=== PATIENT | male | born 1945 | race Caucasian/White ===

== ENCOUNTER 2019-01-17 00:10 | Inpatient (IN) | payer OTHER, MEDICARE ==
[2019-01-17] MEDS ORDERED: DILTIAZEM HCL INJ 25 MG/5 ML VIAL ONE (01:24)
[2019-01-17] MEDS ORDERED: DILTIAZEM HCL/D5W 125 MG/125 ML RTUINJ IV ONE (01:25)
[2019-01-17] MEDS ORDERED: ASPIRIN 81 MG TABLET, CHEWABLE PO ONE (01:28)
[2019-01-17] MEDS ORDERED: DILTIAZEM HCL/D5W 125 MG/125 ML RTUINJ IV PRN (01:29)
[2019-01-17] MEDS ORDERED: DILTIAZEM HCL INJ 25 MG/5 ML VIAL IV ONE (01:29)
[2019-01-17] MEDS ORDERED: NORMAL SALINE 500 ML IV ONE ×2 (01:38→02:51)
--- NOTE | 2019-01-17 01:38 | ER Document Report ---
ED Cardiac - General Chief Complaint: Chest Pain Stated Complaint: CHEST PAIN Time Seen by Provider: 01/17/19 01:16 Notes: Patient is a 73-year-old male that comes emergency department for chief complaint of chest pain. He states he felt earlier this afternoon briefly but thought it was just soreness in his chest from push-ups he tried this morning, however this evening prior to arrival it became much more noticeable so he came into be evaluated. Symptoms are still intermittent. He denies shortness of breath, dizziness, nausea, vomiting, fever/chills. Past medical history of hypertension, hyperlipidemia, [place] in 1999. Takes baby aspirin. TRAVEL OUTSIDE OF THE [place] IN LAST 30 DAYS: No - Related Data Allergies/Adverse Reactions: Penicillins Allergy (Mild, Verified 01/17/19 00:13) Past Medical History - General Information source: Patient - Social History Smoking Status: Never Smoker Frequency of alcohol use: None Drug Abuse: None Lives with: Family Family History: Reviewed & Not Pertinent - Past Medical History Cardiac Medical History: Reports: Hx Heart Attack, Hx Hypercholesterolemia, Hx Hypertension Past Surgical History: Reports: Hx Cardiac Catheterization, Hx Cholecystectomy - Immunizations Immunizations up to date: Yes Hx Diphtheria, Pertussis, Tetanus Vaccination: Yes Review of Systems - Review of Systems Constitutional: No symptoms reported EENT: No symptoms reported Cardiovascular: See HPI Respiratory: No symptoms reported Gastrointestinal: No symptoms reported Genitourinary: No symptoms reported Male Genitourinary: No symptoms reported Musculoskeletal: No symptoms reported Skin: No symptoms reported Hematologic/Lymphatic: No symptoms reported Neurological/Psychological: No symptoms reported Physical Exam - Vital signs Vitals: Temp Pulse Resp BP Pulse Ox 97.5 F 70 20 112/76 96 01/17/19 00:34 01/17/19 00:34 01/17/19 00:34 01/17/19 00:34 01/17/19 00:34 - Notes Notes: GENERAL: Alert, interacts well. No acute distress. HEAD: Normocephalic, atraumatic. EYES: Pupils equal, round, and reactive to light. Extraocular movements intact. ENT: Oral mucosa moist, tongue midline. Oropharynx unremarkable. Airway patent. LUNGS: Clear to auscultation bilaterally, no wheezes, rales, or rhonchi. No respiratory distress. HEART: Irregularly irregular with tachycardia. No murmur. ABDOMEN: Soft, non-tender. Non-distended. EXTREMITIES: Moves all 4 extremities spontaneously. No edema, normal radial and dorsalis pedis pulses bilaterally. No cyanosis. BACK: no cervical, thoracic, lumbar midline tenderness. No saddle anesthesia, normal distal neurovascular exam. Moves all extremities in full range of motion. NEUROLOGICAL: Alert and oriented x3. Normal speech. Cranial nerves II through XII grossly intact. PSYCH: Normal affect, normal mood. SKIN: Warm, dry, normal turgor. No rashes or lesions noted. Course - Re-evaluation Re-evalutation: 01/17/19 01:32 On initial evaluation patient noted to be in atrial fibrillation with rapid ventricular response. He does feel vague discomfort with it. His heart rate was trending in the 150s, initial EKG did not show A. fib, EKG was repeated and patient confirmed to be in atrial fibrillation. Patient and family confirm that he does not have a history of atrial fibrillation, his prescriptions suggest that he has never had this before as well. 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 Patient blood pressure initially 117 systolic at bedside. He was given 15 mg of Cardizem, he did have good response and his average heart rate dropped down to the 105-125 range, however he remains in atrial for ablation. He is on a Cardizem drip. Given aspirin. Work-up pending. CBC unremarkable, magnesium and TSH are unremarkable, chemistry unremarkable ex cept for mild elevation of creatinine at 1.59. No previous records to compare to. Troponin is negative. Chest x-ray is clear. On reevaluation patient without significant change. We have not increased Cardizem because his blood pressure is slightly borderline. He denies any current symptoms. Patient was given Lovenox because of his atrial fibrillation with rapid ventricular response. Called and spoke with daughter Isiah, hospitalist, patient admitted to telemetry. Family states understanding and agreement with plan. - Vital Signs Vital signs: Temp Pulse Resp BP Pulse Ox 97.5 F 70 20 106/65 95 01/17/19 00:34 01/17/19 00:34 01/17/19 05:12 01/17/19 05:12 01/17/19 05:12 - Laboratory Result Diagrams: 01/17/19 01:30 01/17/19 01:30 Laboratory results interpreted by me: 01/17/19 01/17/19 01:30 01:30 RDW 14.1 H Monocytes % 13.1 H BUN 26 H Creatinine 1.59 H Est GFR ( Amer) 52 L Est GFR (Non-Af Amer) 43 L Calcium 10.3 H Total Bilirubin 2.2 H Discharge - Discharge Clinical Impression: Atrial fibrillation with rapid ventricular response, Chest discomfort Condition: Stable Disposition: ADMITTED INPATIENT Admitting Provider: Isiah (Hospitalist) Unit Admitted: Telemetry
[2019-01-17 01:44] LABS: ABSOLUTE BASOPHILS # (AUTO) 0.1 10^3/uL (0.0-0.2); ABSOLUTE EOSINOPHILS # (AUTO) 0.1 10^3/uL (0.0-0.6); ABSOLUTE LYMPHOCYTES (AUTO) 1.2 10^3/uL (0.5-4.7); ABSOLUTE MONOCYTES (AUTO) 1.2 10^3/uL (0.1-1.4); ABSOLUTE NEUT (AUTO) 6.3 10^3/uL (1.7-8.2); BASOPHILS % (AUTO) 0.7 % (0-2); EOSINOPHILS % (AUTO) 1.4 % (0-6); HEMATOCRIT 44.3 % (37.9-51.0); HEMOGLOBIN 14.9 g/dL (13.5-17.0); LYMPHOCYTES % (AUTO) 13.7 % (13-45); MEAN CORPUSCULAR HEMOGLOBIN 30.3 pg (27.0-33.4); MEAN CORPUSCULAR HGB CONC 33.6 g/dL (32.0-36.0); MEAN CORPUSCULAR VOLUME 90 fl (80-97); MONOCYTES % (AUTO) 13.1 % (3-13); PLATELET COUNT 153 10^3/uL (150-450); RED BLOOD COUNT 4.91 10^6/uL (4.35-5.55); RED CELL DISTRIBUTION WIDTH 14.1 % (11.5-14.0); SEGMENTED NEUTROPHILS % (AUTO) 71.1 % (42-78); TOTAL CELLS COUNTED % (AUTO) 100 %; WHITE BLOOD COUNT 8.9 10^3/uL (4.0-10.5)
[2019-01-17 01:59] LABS: ALBUMIN 4.2 g/dL (3.5-5.0); ALKALINE PHOSPHATASE 78 U/L (38-126); ANION GAP 12 (5-19); ASPARTATE AMINO TRANSFERASE 18 U/L (17-59); BILIRUBIN,DIRECT 0.2 mg/dL (0.0-0.4); BILIRUBIN,TOTAL 2.2 mg/dL (0.2-1.3); BLOOD UREA NITROGEN 26 mg/dL (7-20); CALCIUM 10.3 mg/dL (8.4-10.2); CARBON DIOXIDE 22 mmol/L (22-30); CHLORIDE 107 mmol/L (98-107); GLUCOSE 102 mg/dL (75-110); POTASSIUM 4.3 mmol/L (3.6-5.0); TOTAL PROTEIN 7.1 g/dL (6.3-8.2)
--- NOTE | 2019-01-17 02:04 | RADIOLOGY REPORT (SQ) ---
CLINICAL HISTORY: chest pain COMPARISON: None. TECHNIQUE: XR CHEST 1 VIEW 01/17/2019 1:29 AM CDT FINDINGS: Cardiac silhouette is normal in size. Lungs are clear without consolidation, atelectasis, mass or edema. There is no pleural effusion. There is no pneumothorax. There are no acute osseous findings. IMPRESSION: Clear lungs.
[2019-01-17] MEDS ORDERED: ENOXAPARIN SODIUM INJ 80 MG/0.8 ML DISP.SYRIN SUBCUT ONE (02:35)
[2019-01-17] MEDS ORDERED: LEVALBUTEROL HCL NEB 0.63 MG/3 ML AMPUL NEB PRN (04:16)
[2019-01-17] MEDS ORDERED: MAGNESIUM HYDROXIDE SUSP 30 ML UDCUP PO PRN (04:16)
[2019-01-17] MEDS ORDERED: ONDANSETRON HCL INJ/PF 4 MG/2 ML SDV IV PRN (04:16)
[2019-01-17] MEDS ORDERED: MAG HYDROX/AL HYDROX/SIMETH SUSP 30 ML UDCUP PO PRN (04:16)
[2019-01-17] MEDS ORDERED: NICOTINE 21 MG/24 HR PATCH.TD24 TD PRN (04:22)
[2019-01-17] MEDS ORDERED: ACETAMINOPHEN 325 MG TABLET PO PRN (04:22)
[2019-01-17] MEDS ORDERED: MORPHINE SULFATE 10 MG/ML INJ IV PRN ×4 (04:22→05:23)
[2019-01-17] MEDS ORDERED: DIGOXIN INJ 0.5 MG/2 ML AMPULE IV ONE (04:23)
--- NOTE | 2019-01-17 06:57 | PDOC H&P ---
History of Present Illness Admission Date/PCP: 01/17/19 03:12 GABRIELLA AYALA Patient complains of: Chest pain History of Present Illness: ELZA ELLIOTT is a 73 year old male who presented to the emergency room with acute chest pain. He admits having mild soreness in his chest earlier in the day yesterday, but last evening he developed severe, intermittent throbbing pressure in his central chest, without radiation causing him to present to the emergency room. The episodes of discomfort lasted for a few minutes to several minutes before spontaneously regressing and then later reoccurring. He admits lightheadedness associated with his chest pain and anxiety as well as mild d yspnea worsened by exertion accompanying his chest pain. He denies prior similar episodes and has not identified any aggravating or ameliorating factors for his chest pain. In the emergency room he was found to have atrial fibrillation with a rapid ventricular response (new onset) and the patient's chest discomfort correlated to atrial fibrillation rates in excess of 150 bpm. His initial cardiac enzymes were negative and his EKG did not show any evidence of cardiac ischemia or injury. He was started on an intravenous diltiazem infusion which established fair rate control and he was subsequently admitted to the hospital for further evaluation and treatment. Past Medical History Cardiac Medical History: Reports: Coronary Artery Disease, Myocardial Infarction - 2001, Hyperlipidema, Hypertension Pulmonary Medical History: Denies: Asthma, Chronic Obstructive Pulmonary Disease (COPD) EENT Medical History: Reports: Nose - Chronic allergic rhinitis Denies: Cataracts, Ears - Hearing aids Neurological Medical History: Denies: Hemorrhagic CVA, Ischemic CVA, Multiple Sclerosis, Seizures Endocrine Medical History: Denies: Diabetes Mellitus Type 1, Diabetes Mellitus Type 2, Hyperthyroidism, Hypothyroidism, Obesity Renal/ Medical History: Reports: Other - Benign prostatic hypertrophy Denies: Chronic Kidney Disease, Nephrolithiasis Malignancy Medical History: Reports: None GI Medical History: Denies: Cirrhosis, Crohn's Disease, Hepatitis, Ulcerative Colitis Musculoskeltal Medical History: Denies: Arthritis, Gout Skin Medical History: Denies: Eczema, Psoriasis Psychiatric Medical History: Reports: None Denies: Alcohol Dependency, Substance Abuse, Tobacco Dependency Traumatic Medical History: Reports: None Hematology: Denies: Anemia, Bleeding Tendencies Infectious Medical History: Reports: None Past Surgical History Past Surgical History: Reports: Cholecystectomy, Herniorrhaphy, Tonsillectomy Social History Information Source: Patient Lives with: Spouse/Significant other Smoking Status: Never Smoker Frequency of Alcohol Use: None Hx Recreational Drug Use: No Drugs: None Hx Prescription Drug Abuse: No - Advance Directive Resuscitation Status: Full Code Surrogate healthcare decision maker:: Ivana Elliott Family History Family History: CAD, DM, Hypertension. denies: Malignancy Parental Family History Reviewed: Yes Children Family History Reviewed: No Sibling(s) Family History Reviewed.: Yes Medication/Allergy Allergies/Adverse Reactions: Penicillins Allergy (Mild, Verified 01/17/19 00:13) Review of Systems Constitutional: ABSENT: chills, fever(s) Eyes: ABSENT: visual disturbances, other - Eye pain Ears: ABSENT: hearing changes, other - Ear pain Nose, Mouth, and Throat: ABSENT: mouth pain, sore throat Cardiovascular: PRESENT: as per HPI, chest pain, dyspnea on exertion, palpitations. ABSENT: edema, orthropnea Respiratory: PRESENT: as per HPI, dyspnea. ABSENT: cough Gastrointestinal: ABSENT: abdominal pain, constipation, diarrhea, nausea, vomiting Genitourinary: ABSENT: dysuria, hematuria Integumentary: ABSENT: diaphoresis, pruritus, rash Neurological: ABSENT: confusion, convulsions, focal weakness, memory loss, syncope Psychiatric: PRESENT: as per HPI, anxiety. ABSENT: depression Endocrine: ABSENT: cold intolerance, heat intolerance Hematologic/Lymphatic: ABSENT: easy bleeding, easy bruising Allergic/Immunologic: PRESENT: seasonal rhinorrhea Physical Exam Vital Signs: Temp Pulse Resp BP Pulse Ox 97.5 F 70 16 102/68 97 01/17/19 00:34 01/17/19 00:34 01/17/19 03:01 01/17/19 03:01 01/17/19 03:01 Intake & Output 01/15/19 01/16/19 01/17/19 23:59 23:59 23:59 Intake Total 1000 Balance 1000 Weight 81 kg General appearance: PRESENT: no acute distress, cooperative Head exam: PRESENT: atraumatic, normocephalic Eye exam: PRESENT: conjunctiva pink. ABSENT: conjunctival injection, scleral icterus Ear exam: PRESENT: normal external ear exam. ABSENT: bleeding, drainage Mouth exam: PRESENT: dry mucosa, neck supple Neck exam: ABSENT: JVD, thyromegaly, tracheal deviation Respiratory exam: PRESENT: clear to auscultation ayana, symmetrical, unlabored Cardiovascular exam: PRESENT: irregular rhythm - Irregularly irregular rate and rhythm, tachycardia. ABSENT: clicks, gallop, rubs Pulses: PRESENT: normal radial pulses, normal dorsalis pedis pul Vascular exam: PRESENT: normal capillary refill. ABSENT: pallor GI/Abdominal exam: PRESENT: normal bowel sounds, soft. ABSENT: tenderness Rectal exam: PRESENT: deferred Extremities exam: ABSENT: joint swelling, pedal edema Musculoskeletal exam: PRESENT: full ROM, normal inspection Neurological exam: PRESENT: alert, oriented to person, oriented to place, oriented to time, oriented to situation, CN II-XII grossly intact. ABSENT: motor sensory deficit Psychiatric exam: PRESENT: appropriate affect, normal mood Skin exam: PRESENT: dry, intact, warm. ABSENT: jaundice, rash, urticaria Results Laboratory Results: 01/17/19 01:30 01/17/19 01:30 01/17/19 01/17/19 01/17/19 01:30 01:30 01:30 WBC 8.9 RBC 4.91 Hgb 14.9 Hct 44.3 MCV 90 MCH 30.3 MCHC 33.6 RDW 14.1 H Plt Count 153 Seg Neutrophils % 71.1 Lymphocytes % 13.7 Monocytes % 13.1 H Eosinophils % 1.4 Basophils % 0.7 Absolute Neutrophils 6.3 Absolute Lymphocytes 1.2 Absolute Monocytes 1.2 Absolute Eosinophils 0.1 Absolute Basophils 0.1 Sodium 140.8 Potassium 4.3 Chloride 107 Carbon Dioxide 22 Anion Gap 12 BUN 26 H Creatinine 1.59 H Est GFR ( Amer) 52 L Est GFR (Non-Af Amer) 43 L Glucose 102 Calcium 10.3 H Magnesium 2.3 Total Bilirubin 2.2 H AST 18 Alkaline Phosphatase 78 Total Protein 7.1 Albumin 4.2 TSH 01/17/19 01:30 WBC RBC Hgb Hct MCV MCH MCHC RDW Plt Count Seg Neutrophils % Lymphocytes % Monocytes % Eosinophils % Basophils % Absolute Neutrophils Absolute Lymphocytes Absolute Monocytes Absolute Eosinophils Absolute Basophils Sodium Potassium Chloride Carbon Dioxide Anion Gap BUN Creatinine Est GFR ( Amer) Est GFR (Non-Af Amer) Glucose Calcium Magnesium Total Bilirubin AST Alkaline Phosphatase Total Protein Albumin TSH 2.92 01/17/19 01:30 Troponin I < 0.012 Impressions: Chest X-Ray 01/17/19 01:29 IMPRESSION: Clear lungs. Assessment and Plan - Diagnosis (1) Atrial fibrillation with rapid ventricular response Is this a current diagnosis for this admission?: Yes Plan: Patient was treated initially with diltiazem infusion. Due to his soft blood pressure he will also be treated with Lanoxin 0.5 mg IV initially followed by 0.25 mg daily with daily digoxin levels to be obtained. A daily CBC, metabolic profile and magnesium level will also be obtained. (2) Chest discomfort Is this a current diagnosis for this admission?: Yes Plan: Patient will be monitored with telemetry throughout his hospital course. Serial cardiac enzymes and EKGs will be obtained. Further evaluation will be based upon his hospital course and the results of his testing. Consideration of the patient's chest discomfort may have been his interpretation of palpitations is given. Patient will be treated with morphine sulfate 2 to 4 mg IV every 2 hours on a as needed basis for his chest pain using a sliding scale. (3) CAD (coronary artery disease), [place] coronary artery Qualifiers: [place] vs. transplanted heart: [place] heart Associated angina: angina presence unspecified Qualified Code(s): I25.10 - Atherosclerotic heart disease of [place] coronary artery without angina pectoris Is this a current diagnosis for this admission?: Yes Plan: Patient will be monitored with telemetry throughout his hospital course. Serial cardiac enzymes and EKGs will be obtained. Further evaluation will be based upon his hospital course and the results of his testing. (4) Essential hypertension Is this a current diagnosis for this admission?: Yes Plan: Patient be continued on his usual antihypertensive regiment once his medical reconciliation has been completed. Adjustments will be made as required due to treatment of his atrial fibrillation. (5) HLD (hyperlipidemia) Qualifiers: Hyperlipidemia type: unspecified Qualified Code(s): E78.5 - Hyperlipidemia, unspecified Is this a current diagnosis for this admission?: Yes Plan: A lipid profile will be obtained and the patient will be treated with a cardiac diet. He will be continued on any lipid therapies prescribed to him once his medical reconciliation has been completed. Appropriate therapy will be prescribed as needed. - Time Time Spent with patient: 25-34 minutes Smoking Cessation Education: 3 to 10 minutes Medications reviewed and adjusted accordingly: Yes Anticipated discharge: Home - Inpatient Certification Based on my medical assessment, after consideration of the patient's comorbidities, presenting symptoms, or acuity I expect that the services needed warrant INPATIENT care.: Yes I certify that my determination is in accordance with my understanding of Medicare's requirements for reasonable and necessary INPATIENT services [42 CFR 412.3e].: Yes Medical Necessity: Significant Comorbidiites Make Outpatient Treatment Too Risky, Need Close Monitoring Due to Risk of Patient Decompensation, Need For Continuous Telemetry Monitoring, Risk of Complication if Not Cared For in Hospital
--- NOTE | 2019-01-17 07:37 | EKG REPORT ---
SEVERITY:- ABNORMAL ECG - ATRIAL FIBRILLATION WITH RAPID V-RATE VENTRICULAR PREMATURE COMPLEX NONSPECIFIC T ABNORMALITIES, LATERAL LEADS : Confirmed by: Romero Zaragoza MD 17-Jan-2019 07:36:48
--- NOTE | 2019-01-17 07:38 | EKG REPORT ---
SEVERITY:- NORMAL ECG - SINUS RHYTHM NONSPECIFIC LATERAL ST-T CHANGES : Confirmed by: Romero Zaragoza MD 17-Jan-2019 07:37:27
--- NOTE | 2019-01-17 07:41 | ADVANCED CARE ---
- Diagnosis (1) Atrial fibrillation with rapid ventricular response Diagnosis Current: Yes (2) Chest discomfort Diagnosis Current: Yes (3) CAD (coronary artery disease), [place] coronary artery Diagnosis Current: Yes (4) Essential hypertension Diagnosis Current: Yes (5) HLD (hyperlipidemia) Diagnosis Current: Yes Attendance: The patient, Ivana Elliott (his ) and myself. Resuscitation Status: Full Code Discussion: After brief discussion with patient and his have determined that he should be a full code resuscitation status throughout this hospitalization. Additionally the patient has named his Ivana Elliott as his designated surrogate medical decision-maker. They have not considered a living will or advanced directive at this point. Care Planning Goals: 1. Patient will be full CODE STATUS for this admission. 2. Ivana Elliott is the patient's designated surrogate medical decision-maker. Document(s) Completed: Following entries be made to the patient's permanent medical record, current medical record and current orders via EMR entry: 1. Patient will be full CODE STATUS for this admission. 2. Ivana Elliott is the patient's designated surrogate medical decision-maker. Time Spent: 16 minutes
[2019-01-17 08:31] LABS: TROPONIN I < 0.012 ng/mL
[2019-01-17 08:34] LABS: FREE T3 3.81 pg/mL (2.77-5.27); FREE T4 (FREE THYROXINE) 1.1 ng/dL (0.78-2.19)
[2019-01-17 08:47] LABS: THYROID STIMULATING HORMONE 2.19 uIU/mL (0.47-4.68)
[2019-01-17] MEDS: DOCUSATE SODIUM 100 MG CAPSULE PO SCH ×2 (09:56→17:42)
[2019-01-17] MEDS: FAMOTIDINE 20 MG TABLET PO SCH ×2 (10:00→22:02)
[2019-01-17] MEDS: APIXABAN 5 MG TABLET PO SCH ×2 (10:01→17:42)
[2019-01-17 14:31] LABS: CREATINE KINASE MB 0.96 ng/mL (<4.55)
[2019-01-17 14:32] LABS: TROPONIN I < 0.012 ng/mL
[2019-01-17 20:27] LABS: TROPONIN I < 0.012 ng/mL
[2019-01-18 06:01] LABS: HEMATOCRIT 41.4 % (37.9-51.0); HEMOGLOBIN 13.9 g/dL (13.5-17.0); MEAN CORPUSCULAR HEMOGLOBIN 30.5 pg (27.0-33.4); MEAN CORPUSCULAR HGB CONC 33.7 g/dL (32.0-36.0); MEAN CORPUSCULAR VOLUME 91 fl (80-97); PLATELET COUNT 128 10^3/uL (150-450); RED BLOOD COUNT 4.57 10^6/uL (4.35-5.55); RED CELL DISTRIBUTION WIDTH 14.1 % (11.5-14.0); WHITE BLOOD COUNT 8.2 10^3/uL (4.0-10.5)
[2019-01-18 06:16] LABS: ANION GAP 6 (5-19); BLOOD UREA NITROGEN 22 mg/dL (7-20); CALCIUM 9.1 mg/dL (8.4-10.2); CARBON DIOXIDE 25 mmol/L (22-30); CHLORIDE 107 mmol/L (98-107); CHOLESTEROL 119.82 mg/dL (0-200); DIGOXIN 0.73 ng/mL (0.8-2.0); GLUCOSE 88 mg/dL (75-110); POTASSIUM 5.1 mmol/L (3.6-5.0); TRIGLYCERIDES 134 mg/dL (<150)
[2019-01-18 06:25] LABS: DIRECT LDL 76 mg/dL (<100)
--- NOTE | 2019-01-18 07:58 | EKG REPORT ---
SEVERITY:- BORDERLINE ECG - SINUS RHYTHM MILD LATERAL NONSPECIFIC ST-T CHANGES : Confirmed by: Romero Zaragoza MD 18-Jan-2019 07:57:56
--- NOTE | 2019-01-18 08:41 | Progress Note Acknowledgement ---
Progress Note Acknowledgement Progess Note Acknowledgement: I, the undersigned member of the medical staff with appropriate privileges and with supervisory authority over [ PAC ], a dependent practice allied health professional, acknowledge that I have reviewed the progress notes entered on this patient, and in my professional judgment believe that the assessment made and/or any care evidenced was appropriate
--- NOTE | 2019-01-18 08:48 | PDOC PROGRESS REPORT ---
Subjective Progress Note for:: 01/18/19 Subjective:: 01/18/2019 patient's atrial fib appears to be controlled with p.o. dig 0.25 mg Cardizem was discontinued CBC is normal potassium is up slightly 5.1 BUN and creatinine stable 22 and 1.58 dig level 0.73 Today pulse rate is between 60 and 70 today's blood pressure is 110/70, sats are in the upper 90s Plan cardiology will see the patient today probably discharge today, on digoxin we will stop his oxygen this morning I do not think patient will need this as he was not using it before he was admitted. Patient has no complaints. EKG this morning shows no atrial fib Reason For Visit: ATRIAL FIBRILLATION WITH RAPID VENTRICULAR Physical Exam Vital Signs: Temp Pulse Resp BP Pulse Ox 98.6 F 70 18 114/77 98 01/18/19 07:32 01/18/19 07:32 01/18/19 07:32 01/18/19 07:32 01/18/19 07:32 Intake & Output 01/17/19 01/18/19 01/19/19 06:59 06:59 06:59 Intake Total 1000 240 700 Output Total 300 275 Balance 1000 -60 425 Weight 81 kg 81.6 kg General appearance: PRESENT: no acute distress, well-developed, well-nourished Respiratory exam: PRESENT: clear to auscultation ayana. ABSENT: rales, rhonchi, wheezes Cardiovascular exam: PRESENT: RRR. ABSENT: diastolic murmur, rubs, systolic murmur Neurological exam: PRESENT: alert, awake, oriented to person, oriented to place, oriented to time, oriented to situation, CN II-XII grossly intact. ABSENT: motor sensory deficit Psychiatric exam: PRESENT: appropriate affect, normal mood. ABSENT: homicidal ideation, suicidal ideation Results Laboratory Results: 01/18/19 05:30 01/18/19 05:30 01/17/19 01/18/19 01/18/19 07:40 05:30 05:30 WBC 8.2 RBC 4.57 Hgb 13.9 Hct 41.4 MCV 91 MCH 30.5 MCHC 33.7 RDW 14.1 H Plt Count 128 L Sodium 138.0 Potassium 5.1 H Chloride 107 Carbon Dioxide 25 Anion Gap 6 BUN 22 H Creatinine 1.58 H Est GFR ( Amer) 52 L Est GFR (Non-Af Amer) 43 L Glucose 88 Calcium 9.1 Magnesium 2.1 Triglycerides 134 Cholesterol 119.82 LDL Cholesterol Direct 76 VLDL Cholesterol 27.0 HDL Cholesterol 34 L TSH 2.19 Free T4 1.10 Free T3 pg/mL 3.81 01/17/19 01/17/19 01/17/19 01:30 07:40 07:40 Creatine Kinase 48 L CK-MB (CK-2) 0.80 Troponin I < 0.012 < 0.012 01/17/19 01/17/19 01/17/19 13:34 13:34 19:40 Creatine Kinase 51 L 46 L CK-MB (CK-2) 0.96 Troponin I < 0.012 01/17/19 19:40 Creatine Kinase CK-MB (CK-2) 0.80 Troponin I < 0.012 Impressions: Chest X-Ray 01/17/19 01:29 IMPRESSION: Clear lungs. Assessment and Plan - Diagnosis (1) Atrial fibrillation with rapid ventricular response Is this a current diagnosis for this admission?: Yes Plan: Patient was treated initially with diltiazem infusion. Due to his soft blood pressure he will also be treated with Lanoxin 0.5 mg IV initially followed by 0.25 mg daily with daily digoxin levels to be obtained. A daily CBC, metabolic profile and magnesium level will also be obtained. 01/18/2018 heart rate today is in the 60s or 70s regular patient is on digoxin 0.25 mg. Level this morning was 0.73 and Cardizem has been discontinued. She has no pain (2) CAD (coronary artery disease), [place] coronary artery Qualifiers: [place] vs. transplanted heart: [place] heart Associated angina: angina presence unspecified Qualified Code(s): I25.10 - Atherosclerotic heart disease of [place] coronary artery without angina pectoris Is this a current diagnosis for this admission?: Yes Plan: Patient will be monitored with telemetry throughout his hospital course. Serial cardiac enzymes and EKGs will be obtained. Further evaluation will be based upon his hospital course and the results of his testing. 01/18/2019 patient has no chest pain serial enzymes were negative EKG this morning shows no atrial fibrillation (3) Chest discomfort Is this a current diagnosis for this admission?: Yes Plan: Patient will be monitored with telemetry throughout his hospital course. Serial cardiac enzymes and EKGs will be obtained. Further evaluation will be based upon his hospital course and the results of his testing. Consideration of the patient's chest discomfort may have been his interpretation of palpitations is given. Patient will be treated with morphine sulfate 2 to 4 mg IV every 2 hours on a as needed basis for his chest pain using a sliding scale. 01/18/2019 patient has had no chest pain since admission and required no medication for this since admission (4) Essential hypertension Is this a current diagnosis for this admission?: Yes Plan: Patient be continued on his usual antihypertensive regiment once his medical reconciliation has been completed. Adjustments will be made as required due to treatment of his atrial fibrillation. 01/18/2019 patient's blood pressures have been well controlled today is 110/70 (5) HLD (hyperlipidemia) Qualifiers: Hyperlipidemia type: unspecified Qualified Code(s): E78.5 - Hyperlipidemia, unspecified Is this a current diagnosis for this admission?: Yes Plan: A lipid profile will be obtained and the patient will be treated with a cardiac diet. He will be continued on any lipid therapies prescribed to him once his medical reconciliation has been completed. Appropriate therapy will be prescribed as needed. 01/18/2018 patient's hyperlipidemia being treated prior to admission. - Time Time Spent with patient: 15-24 minutes
[2019-01-18] MEDS ORDERED: DIGOXIN 0.25 MG TABLET PO SCH (10:00)
[2019-01-18] MEDS: FAMOTIDINE 20 MG TABLET PO SCH ×2 (10:17→21:13)
[2019-01-18] MEDS: DOCUSATE SODIUM 100 MG CAPSULE PO SCH ×2 (10:17→18:23)
[2019-01-18] MEDS: APIXABAN 5 MG TABLET PO SCH ×2 (10:17→18:23)
[2019-01-18] MEDS ORDERED: METOPROLOL TARTRATE 25 MG TABLET ONE (18:37)
[2019-01-18] MEDS: METOPROLOL TARTRATE 25 MG TABLET PO SCH (21:13)
[2019-01-19] MEDS ORDERED: METOPROLOL TARTRATE PF/INJ 5 MG/5 ML SDV IV ONE (02:15)
[2019-01-19] MEDS: METOPROLOL TARTRATE PF/INJ 5 MG/5 ML SDV IV SCH ×3 (02:36→03:05)
[2019-01-19] MEDS ORDERED: METOPROLOL SUCCINATE 50 MG TAB.SR.24H PO ONE (05:20)
[2019-01-19 07:02] LABS: HEMATOCRIT 42.8 % (37.9-51.0); HEMOGLOBIN 14.4 g/dL (13.5-17.0); MEAN CORPUSCULAR HEMOGLOBIN 30.1 pg (27.0-33.4); MEAN CORPUSCULAR HGB CONC 33.7 g/dL (32.0-36.0); MEAN CORPUSCULAR VOLUME 89 fl (80-97); PLATELET COUNT 138 10^3/uL (150-450); RED CELL DISTRIBUTION WIDTH 13.6 % (11.5-14.0); WHITE BLOOD COUNT 8.5 10^3/uL (4.0-10.5)
[2019-01-19 07:24] LABS: ANION GAP 6 (5-19); BLOOD UREA NITROGEN 21 mg/dL (7-20); CALCIUM 9.1 mg/dL (8.4-10.2); CARBON DIOXIDE 23 mmol/L (22-30); CHLORIDE 107 mmol/L (98-107); DIGOXIN 0.77 ng/mL (0.8-2.0); GLUCOSE 103 mg/dL (75-110); POTASSIUM 4.8 mmol/L (3.6-5.0)
--- NOTE | 2019-01-19 08:11 | EKG REPORT ---
SEVERITY:- ABNORMAL ECG - ATRIAL FIBRILLATION MULTIPLE PREMATURE COMPLEXES, VENT BORDERLINE T WAVE ABNORMALITIES : Confirmed by: Romero Zaragoza MD 19-Jan-2019 08:10:23
[2019-01-19] MEDS ORDERED: DILTIAZEM HCL INJ 25 MG/5 ML VIAL IV ONE ×3 (08:45→14:45)
[2019-01-19] MEDS ORDERED: DILTIAZEM HCL INJ 25 MG/5 ML VIAL ONE (08:56)
[2019-01-19] MEDS: DOCUSATE SODIUM 100 MG CAPSULE PO SCH ×2 (09:06→18:41)
[2019-01-19] MEDS: METOPROLOL TARTRATE 25 MG TABLET PO SCH (09:07)
[2019-01-19] MEDS: APIXABAN 5 MG TABLET PO SCH ×2 (09:08→18:42)
[2019-01-19] MEDS: FAMOTIDINE 20 MG TABLET PO SCH ×2 (09:08→23:03)
[2019-01-19] MEDS ORDERED: DIGOXIN 0.125 MG TABLET PO ONE (11:30)
[2019-01-19] MEDS: NORMAL SALINE 1000 ML 1,000 ML IV PRN (12:23)
[2019-01-19] MEDS: DILTIAZEM HCL 30 MG TABLET PO SCH ×2 (18:40→23:03)
--- NOTE | 2019-01-19 20:30 | PDOC CONSULTATION ---
Consultation-Blank Consultation: CARDIOLOGY CONSULTATION by Dr. Rita Adair on 01/19/2019. Patient seen at 11 AM. REASON FOR CONSULTATION: Patient admitted with known history of coronary artery disease, with history of WA and history of stent in the past admitted with chest pain/pressure and found to be in atrial fibrillation with rapid ventricular response. CONSULT REQUESTING PHYSICIAN: Susi Valente mata GAUDENCIO, [facility] HISTORY OF PRESENT ILLNESS.: Patient is a 73-year-old male with known history of coronary artery disease, remote history of WA and history of coronary artery stent placement in 2002 and a unknown vessel. The patient states he had sudden onset of throbbing chest pressure with shortness of breath and palpitations. He came to the emergency room and was found to be in atrial fibrillation with rapid ventricular response. The patient denies prior history of atrial fibrillation. He in the hospital has been known to go back to sinus rhythm and subsequently reverted to atrial fibrillation. He denies any nausea or vomiting. There is no diarrhea. But the patient appears to be dehydrated. He has no history of TIA CVA. He has no history of diabetes mellitus. He has a history of hypertension. At present the patient is sinus rhythm. His blood pressure is on the low side. Last night the patient had a what seems to be a panic attack,, and he states that he has never had this before, and attributes it to some medication that he got. The only medication he got was Lopressor earlier. But last night when he received his other dose of Lopressor he had no such reaction. He denies history of anxiety or depression. But But does appear to be anxious. This morning the patient went to atrial fibrillation with rapid ventricular response, and was given Cardizem 10 mg IV push, and converted to sinus rhythm. There is no bleeding on Eliquis. There is no TIA CVA symptoms. ast Medical History Cardiac Medical History: Reports: Coronary Artery Disease, Myocardial Infarction - 2002, Hyperlipidema, Hypertension Pulmonary Medical History: Denies: Asthma, Chronic Obstructive Pulmonary Disease (COPD) EENT Medical History: Reports: Nose - Chronic allergic rhinitis Denies: Cataracts, Ears - Hearing aids Neurological Medical History: Denies: Hemorrhagic CVA, Ischemic CVA, Multiple Sclerosis, Seizures Endocrine Medical History: Denies: Diabetes Mellitus Type 1, Diabetes Mellitus Type 2, Hyperthyroidism, Hypothyroidism, Obesity Renal/ Medical History: Reports: Other - Benign prostatic hypertrophy Denies: Chronic Kidney Disease, Nephrolithiasis Malignancy Medical History: Reports: None GI Medical History: Denies: Cirrhosis, Crohn's Disease, Hepatitis, Ulcerative Colitis Musculoskeltal Medical History: Denies: Arthritis, Gout Skin Medical History: Denies: Eczema, Psoriasis Psychiatric Medical History: Reports: None Denies: Alcohol Dependency, Substance Abuse, Tobacco Dependency Traumatic Medical History: Reports: None Hematology: Denies: Anemia, Bleeding Tendencies Infectious Medical History: Reports: None Past Surgical History Past Surgical History: Reports: Cholecystectomy, Herniorrhaphy, Tonsillectomy Social History Information Source: Patient Lives with: Spouse/Significant other Smoking Status: Never Smoker Frequency of Alcohol Use: None Hx Recreational Drug Use: No Drugs: None Hx Prescription Drug Abuse: No - Advance Directive Resuscitation Status: Full Code Surrogate healthcare decision maker:: The patient's surrogate healthcare decision maker is his . Family History Family History: CAD, DM, Hypertension. denies: Malignancy Medication/Allergy Allergies/Adverse Reactions: Penicillins Allergy Review of Systems Constitutional: ABSENT: chills, fever(s) Eyes: ABSENT: visual disturbances, other - Eye pain Ears: ABSENT: hearing changes, other - Ear pain Nose, Mouth, and Throat: ABSENT: mouth pain, sore throat Cardiovascular: PRESENT: as per HPI, chest pain, dyspnea on exertion, palpitations. ABSENT: edema, orthropnea Respiratory: PRESENT: as per HPI, dyspnea. ABSENT: cough Gastrointestinal: ABSENT: abdominal pain, constipation, diarrhea, nausea, vomiting Genitourinary: ABSENT: dysuria, hematuria Integumentary: ABSENT: diaphoresis, pruritus, rash Neurological: ABSENT: confusion, convulsions, focal weakness, memory loss, syncope Psychiatric: PRESENT: as per HPI, anxiety. ABSENT: depression Endocrine: ABSENT: cold intolerance, heat intolerance Hematologic/Lymphatic: ABSENT: easy bleeding, easy bruising Allergic/Immunologic: PRESENT: seasonal rhinorrhea PHYSICAL EXAMINATION: The patient is well-built and well-nourished. In no acute distress. Selected Entries 01/19/19 11:20 Temperature 98.6 F Temperature Oral Source Pulse Rate 63 Respiratory 18 Rate Blood Pressure 99/69 L Blood Pressure 79 Mean BP Location Left Arm BP Position Supine O2 Sat by Pulse 97 Oximetry Oxygen Flow 2.00 Rate Oxygen Delivery Nasal Cannula Method HEAD: Is atraumatic normocephalic. EYES: Pupils equal round regular reactive to light accommodation. Extraocular movements are normal. There is no conjunctival pallor. There is no scleral icterus. EARS: Tympanic membranes are intact. External auditory canals are clear. NOSE: There is no deviated nasal septum. There is no inflammation of the nasal mucous membrane. MOUTH: Mucous membranes of mouth are dry tongue is dry. There is no ulcers. THROAT: There is no redness of the oropharynx. There is no exudates. SKIN: There is no skin rashes skin lesions. There is no petechia or ecchymosis. NECK: Supple. There is no JVD. Carotids are equal there is no bruit. There is no lymphadenopathy. There is no goiter. LUNGS: Clear to auscultation without any rhonchi rales or wheezing. Although on palpation there is no chest wall tenderness. HEART: S1- S2 is heard S1 is of normal intensity. There is no S3 gallop. There is no S4 gallop. There is systolic murmur left sternal border and the apex there is no rub. ABDOMEN: Soft. Nontender. There is no hepatospleno megaly. Bowel sounds are well heard. There is no tender areas masses. EXTREMITIES: Femorals well felt. Leg pulses well felt. There is no pedal edema. There is no DVT or cellulitis. There is no sinus or clubbing. There is no calf tenderness. 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 PSYCHIATRIC: The patient does appear to be slightly anxious. But his judgment insight are intact. Current Medications Acetaminophen (Tylenol 325 Mg Tablet) 650 mg PO Q4HP PRN PRN Reason: For headache, pain or fever Stop: 02/16/19 04:21 Al Hydrox/Mg Hydrox/Simethicone (Maalox Plus Susp 30 Udcup) 30 ml PO Q6HP PRN PRN Reason: HEARTBURN Stop: 02/16/19 04:15 Apixaban (Eliquis 5 Mg Tablet) 5 mg PO BID MIAN Stop: 02/16/19 09:59 Last Admin: 01/19/19 18:42 Dose: 5 mg Documented by: Diltiazem HCl (Cardizem 30 Mg Tablet) 30 mg PO Q6 MIAN Stop: 02/18/19 17:59 Last Admin: 01/19/19 18:40 Dose: 30 mg Documented by: Docusate Sodium (Colace 100 Mg Capsule) 100 mg PO BID [facility] Stop: 02/16/19 09:59 Last Admin: 01/19/19 18:41 Dose: 100 mg Documented by: Famotidine (Pepcid 20 Mg Tablet) 20 mg PO Q12 [facility] Stop: 02/16/19 09:59 Last Admin: 01/19/19 09:08 Dose: 20 mg Documented by: Sodium Chloride (Nacl 0.9% 1000 Ml Iv Soln) 1,000 mls @ 100 mls/hr IV C ONTINUOUS PRN PRN Reason: THIS MED IS NOT "PRN" Stop: 02/18/19 10:39 Last Admin: 01/19/19 12:23 Dose: 100 mls/hr Documented by: Levalbuterol HCl (Xopenex Neb 0.63 Mg/3 Ml Ampul) 0.63 mg NEB RTQ2HP PRN PRN Reason: SHORTNESS OF BREATH Stop: 02/16/19 04:15 Magnesium Hydroxide (Milk Of Magnesia 30 Ml Udcup) 30 ml PO HSP PRN PRN Reason: FOR CONSTIPATION Stop: 02/16/19 04:15 Morphine Sulfate (Morphine 10 Mg/Ml Inj) 2 mg IV Q2HP PRN PRN Reason: FOR PAIN SCALE 1-2 Stop: 01/24/19 05:21 Last Admin: 01/18/19 15:27 Dose: 2 mg Documented by: Morphine Sulfate (Morphine 10 Mg/Ml Inj) 3 mg IV Q2HP PRN PRN Reason: FOR PAIN SCALE 3-4 Stop: 01/24/19 05:21 Morphine Sulfate (Morphine 10 Mg/Ml Inj) 4 mg IV Q2HP PRN PRN Reason: PAIN SCALE OF 5 Stop: 01/24/19 05:22 Nicotine (Nicoderm 21 Mg/24 Hr Transderm Patch) 1 each TD DAILYP PRN PRN Reason: WITHDRAWAL SYMPTOMS Stop: 02/16/19 04:21 Ondansetron HCl (Zofran Inj/Pf 4 Mg/2 Ml Sdv) 4 mg IV Q4HP PRN PRN Reason: FOR NAUSEA/VOMITING Stop: 02/16/19 04:15 Sodium Chloride (Saline Flush 2.5 Ml Monoject Prefil Syrin) 2.5 ml IV Q8 [facility] Stop: 02/16/19 05:59 Last Admin: 01/19/19 15:00 Dose: 2.5 ml Documented by: Discontinued Medications Aspirin (Aspirin 81 Mg Chewable Tablet) 324 mg PO NOW ONE Stop: 01/17/19 01:29 Last Admin: 01/17/19 01:37 Dose: 324 mg Documented by: Digoxin (Lanoxin 0.25 Mg Tablet) 0.25 mg PO DAILY MIAN Stop: 02/17/19 09:59 Last Admin: 01/18/19 10:18 Dose: 0.25 mg Documented by: Digoxin (Lanoxin Inj 0.5 Mg/2 Ml Ampule) 0.5 mg IV NOW ONE Stop: 01/17/19 04:24 Last Admin: 01/17/19 05:39 Dose: 0.5 mg Documented by: Digoxin (Lanoxin 0.125 Mg Tablet) 0.125 mg PO NOW ONE Stop: 01/19/19 11:31 Last Admin: 01/19/19 12:19 Dose: 0.125 mg Documented by: Diltiazem HCl (Cardizem Inj 25 Mg/5 Ml Vial) Confirm Administered Dose 25 mg .ROUTE .STK-MED ONE Stop: 01/17/19 01:25 Last Admin: 01/17/19 01:38 Dose: Not Given Documented by: Diltiazem HCl (Cardizem Inj 25 Mg/5 Ml Vial) 15 mg IV NOW ONE Stop: 01/17/19 01:30 Last Admin: 01/17/19 01:38 Dose: 15 mg Documented by: Diltiazem HCl (Cardizem Inj 25 Mg/5 Ml Vial) 10 mg IV NOW ONE Stop: 01/19/19 08:46 Last Admin: 01/19/19 08:02 Dose: 10 mg Documented by: Diltiazem HCl (Cardizem Inj 25 Mg/5 Ml Vial) Confirm Administered Dose 25 mg .ROUTE .STK-MED ONE Stop: 01/19/19 08:57 Last Admin: 01/19/19 09:09 Dose: 10 mg Documented by: Diltiazem HCl (Cardizem Inj 25 Mg/5 Ml Vial) 10 mg IV NOW ONE Stop: 01/19/19 09:31 Last Admin: 01/19/19 09:46 Dose: Not Given Documented by: Diltiazem HCl (Cardizem Inj 25 Mg/5 Ml Vial) 5 mg IV NOW ONE Stop: 01/19/19 14:46 Last Admin: 01/19/19 15:31 Dose: 5 mg Documented by: Enoxaparin Sodium (Lovenox Inj 80 Mg/0.8 Ml Disp.Syrin) 80 mg SUBCUT ONCE ONE Stop: 01/17/19 02:36 Last Admin: 01/17/19 03:01 Dose: 80 mg Documented by: Diltiazem HCl (Cardizem Rtu Inj 125 Mg-D5w 125 Ml Premix) Confirm Administered Dose 125 mg in 125 mls @ ud IV .STK-MED ONE Stop: 01/17/19 01:26 Last Admin: 01/17/19 01:38 Dose: Not Given Documented by: Diltiazem HCl (Cardizem Rtu Inj 125 Mg-D5w 125 Ml Premix) 125 mg in 125 mls @ 0 mls/hr IV CONTINUOUS PRN; Protocol PRN Reason: THIS MED IS NOT "PRN" Stop: 02/16/19 01:28 Last Admin: 01/17/19 01:35 Dose: 5 mg/hr, 5 mls/hr Documented by: Sodium Chloride (Nacl 0.9% 500 Ml Iv Soln) 500 mls @ 0 mls/hr IV NOW ONE Stop: 01/17/19 01:39 Last Infusion: 01/17/19 02:25 Dose: Infused Documented by: Sodium Chloride (Nacl 0.9% 500 Ml Iv Soln) 500 mls @ 0 mls/hr IV NOW ONE Stop: 01/17/19 02:52 Last Infusion: 01/17/19 03:13 Dose: Infused Documented by: Metoprolol Succinate (Toprol Xl 50 Mg Tab.Sr) 50 mg PO NOW ONE Stop: 01/19/19 05:21 Last Admin: 01/19/19 05:24 Dose: 50 mg Documented by: Metoprolol Tartrate (Lopressor 25 Mg Tablet) 25 mg PO Q12 MIAN Stop: 02/17/19 21:59 Last Admin: 01/19/19 09:07 Dose: 25 mg Documented by: Metoprolol Tartrate (Lopressor 25 Mg Tablet) Confirm Administered Dose 25 mg .ROUTE .STK-MED ONE Stop: 01/18/19 18:38 Last Admin: 01/18/19 18:42 Dose: Not Given Documented by: Metoprolol Tartrate (Lopressor Inj/Pf 5 Mg/5 Ml Sdv) 5 mg IV NOW ONE Stop: 01/19/19 02:16 Last Admin: 01/19/19 02:20 Dose: 5 mg Documented by: Metoprolol Tartrate (Lopressor Inj/Pf 5 Mg/5 Ml Sdv) 5 mg IV Q5M [facility] Stop: 01/19/19 02:56 Last Admin: 01/19/19 03:05 Dose: Not Given Documented by: Labs- Entire Visit 01/17/19 01/17/19 01/17/19 01:30 01:30 01:30 WBC 8.9 RBC 4.91 Hgb 14.9 Hct 44.3 MCV 90 MCH 30.3 MCHC 33.6 RDW 14.1 H Plt Count 153 Seg Neutrophils % 71.1 Lymphocytes % 13.7 Monocytes % 13.1 H Eosinophils % 1.4 Basophils % 0.7 Absolute Neutrophils 6.3 Absolute Lymphocytes 1.2 Absolute Monocytes 1.2 Absolute Eosinophils 0.1 Absolute Basophils 0.1 Sodium 140.8 Potassium 4.3 Chloride 107 Carbon Dioxide 22 Anion Gap 12 BUN 26 H Creatinine 1.59 H Est GFR ( Amer) 52 L Est GFR (Non-Af Amer) 43 L Glucose 102 Calcium 10.3 H Magnesium Total Bilirubin 2.2 H Direct Bilirubin 0.2 Neonat Total Bilirubin Not Reportable Neonat Direct Bilirubin Not Reportable Neonat Indirect Bili Not Reportable AST 18 ALT 15 Alkaline Phosphatase 78 Creatine Kinase CK-MB (CK-2) Troponin I < 0.012 Total Protein 7.1 Albumin 4.2 Triglycerides Cholesterol LDL Cholesterol Direct VLDL Cholesterol HDL Cholesterol TSH Free T4 Free T3 pg/mL Digoxin 01/17/19 01/17/19 01/17/19 01:30 01:30 07:40 WBC RBC Hgb Hct MCV MCH MCHC RDW Plt Count Seg Neutrophils % Lymphocytes % Monocytes % Eosinophils % Basophils % Absolute Neutrophils Absolute Lymphocytes Absolute Monocytes Absolute Eosinophils Absolute Basophils Sodium Potassium Chloride Carbon Dioxide Anion Gap BUN Creatinine Est GFR ( Amer) Est GFR (Non-Af Amer) Glucose Calcium Magnesium 2.3 Total Bilirubin Direct Bilirubin Neonat Total Bilirubin Neonat Direct Bilirubin Neonat Indirect Bili AST ALT Alkaline Phosphatase Creatine Kinase CK-MB (CK-2) Troponin I Total Protein Albumin Triglycerides Cholesterol LDL Cholesterol Direct VLDL Cholesterol HDL Cholesterol TSH 2.92 2.19 Free T4 1.10 Free T3 pg/mL 3.81 Digoxin 01/17/19 01/17/19 01/17/19 07:40 07:40 13:34 WBC RBC Hgb Hct MCV MCH MCHC RDW Plt Count Seg Neutrophils % Lymphocytes % Monocytes % Eosinophils % Basophils % Absolute Neutrophils Absolute Lymphocytes Absolute Monocytes Absolute Eosinophils Absolute Basophils Sodium Potassium Chloride Carbon Dioxide Anion Gap BUN Creatinine Est GFR ( Amer) Est GFR (Non-Af Amer) Glucose Calcium Magnesium Total Bilirubin Direct Bilirubin Neonat Total Bilirubin Neonat Direct Bilirubin Neonat Indirect Bili AST ALT Alkaline Phosphatase Creatine Kinase 48 L 51 L CK-MB (CK-2) 0.80 Troponin I < 0.012 Total Protein Albumin Triglycerides Cholesterol LDL Cholesterol Direct VLDL Cholesterol HDL Cholesterol TSH Free T4 Free T3 pg/mL Digoxin 01/17/19 01/17/19 01/17/19 13:34 19:40 19:40 WBC RBC Hgb Hct MCV MCH MCHC RDW Plt Count Seg Neutrophils % Lymphocytes % Monocytes % Eosinophils % Basophils % Absolute Neutrophils Absolute Lymphocytes Absolute Monocytes Absolute Eosinophils Absolute Basophils Sodium Potassium Chloride Carbon Dioxide Anion Gap BUN Creatinine Est GFR ( Amer) Est GFR (Non-Af Amer) Glucose Calcium Magnesium Total Bilirubin Direct Bilirubin Neonat Total Bilirubin Neonat Direct Bilirubin Neonat Indirect Bili AST ALT Alkaline Phosphatase Creatine Kinase 46 L CK-MB (CK-2) 0.96 0.80 Troponin I < 0.012 < 0.012 Total Protein Albumin Triglycerides Cholesterol LDL Cholesterol Direct VLDL Cholesterol HDL Cholesterol TSH Free T4 Free T3 pg/mL Digoxin 01/18/19 01/18/19 01/19/19 05:30 05:30 06:50 WBC 8.2 8.5 RBC 4.57 4.80 Hgb 13.9 14.4 Hct 41.4 42.8 MCV 91 89 MCH 30.5 30.1 MCHC 33.7 33.7 RDW 14.1 H 13.6 Plt Count 128 L 138 L Seg Neutrophils % Lymphocytes % Monocytes % Eosinophils % Basophils % Absolute Neutrophils Absolute Lymphocytes Absolute Monocytes Absolute Eosinophils Absolute Basophils Sodium 138.0 Potassium 5.1 H Chloride 107 Carbon Dioxide 25 Anion Gap 6 BUN 22 H Creatinine 1.58 H Est GFR ( Amer) 52 L Est GFR (Non-Af Amer) 43 L Glucose 88 Calcium 9.1 Magnesium 2.1 Total Bilirubin Direct Bilirubin Neonat Total Bilirubin Neonat Direct Bilirubin Neonat Indirect Bili AST ALT Alkaline Phosphatase Creatine Kinase CK-MB (CK-2) Troponin I Total Protein Albumin Triglycerides 134 Cholesterol 119.82 LDL Cholesterol Direct 76 VLDL Cholesterol 27.0 HDL Cholesterol 34 L TSH Free T4 Free T3 pg/mL Digoxin 0.73 L 01/19/19 06:50 WBC RBC Hgb Hct MCV MCH MCHC RDW Plt Count Seg Neutrophils % Lymphocytes % Monocytes % Eosinophils % Basophils % Absolute Neutrophils Absolute Lymphocytes Absolute Monocytes Absolute Eosinophils Absolute Basophils Sodium 136.1 L Potassium 4.8 Chloride 107 Carbon Dioxide 23 Anion Gap 6 BUN 21 H Creatinine 1.38 H Est GFR ( Amer) > 60 Est GFR (Non-Af Amer) 51 L Glucose 103 Calcium 9.1 Magnesium 2.1 Total Bilirubin Direct Bilirubin Neonat Total Bilirubin Neonat Direct Bilirubin Neonat Indirect Bili AST ALT Alkaline Phosphatase Creatine Kinase CK-MB (CK-2) Troponin I Total Protein Albumin Triglycerides Cholesterol LDL Cholesterol Direct VLDL Cholesterol HDL Cholesterol TSH Free T4 Free T3 pg/mL Digoxin 0.77 L Chest X-Ray 01/17/19 01:29 IMPRESSION: Clear lungs. 01/18 : 1).SINUS RHYTHM NONSPECIFIC LATERAL ST-T CHANGES 2).SINUS RHYTHM MILD LATERAL NONSPECIFIC ST-T CHANGES 01/19:ATRIAL FIBRILLATION MULTIPLE PREMATURE COMPLEXES, VENT BORDERLINE T WAVE ABNORMALITIES IMPRESSION/RECOMMENDATION: 1. Paroxysmal atrial fibrillation: Noted that the patient seems to be more responsive to Cardizem. Hence we will start the patient on Cardizem 30 mg p.o. every 6 hours. We will stop the patient's metoprolol. Continue Eliquis. 2. Dehydration: We will hydrate the patient with normal saline at 100 mL/h for a liter. 3. Mild renal insufficiency with a GFR of 51 most likely secondary to dehydration. Patient denies any prior history of chronic kidney disease. Will recheck GFR after hydration. 4. Hypertension: Blood pressure is on the lower normal side. Hopefully the blood pressure will improve after hydration. 5. Coronary artery disease. History of old myocardial infarction, and history of stents. Note that the patient's chest pressure symptoms most likely related to atrial fibrillation with rapid response. But later would recommend that the patient have an IV Lexiscan Cardiolite stress test, which can be done as an outpatient. Note there is no evidence of acute myocardial infarction this admission. 6. Most likely has anxiety: Recommend anti-anxiolytic agents. 7. Systolic murmur: Most likely has mild mitral regurgitation. Would later as an outpatient get an echocardiogram. 8. Hyperlipidemia: Continue statins. We will check the patient's lipid levels in the a.m. Medical decision making is of high complexity. Medications reviewed medications added/adjusted. Medical decision making and management plan were discussed with the attending provider on the case. 60 minutes spent on this patient more than 50% of time spent in direct patient care. Will follow.
[2019-01-20 05:34] LABS: HEMOGLOBIN 13.2 g/dL (13.5-17.0); MEAN CORPUSCULAR HEMOGLOBIN 30.3 pg (27.0-33.4); MEAN CORPUSCULAR HGB CONC 33.7 g/dL (32.0-36.0); MEAN CORPUSCULAR VOLUME 90 fl (80-97); PLATELET COUNT 139 10^3/uL (150-450); RED BLOOD COUNT 4.34 10^6/uL (4.35-5.55); RED CELL DISTRIBUTION WIDTH 13.5 % (11.5-14.0); WHITE BLOOD COUNT 6.3 10^3/uL (4.0-10.5)
[2019-01-20] MEDS: DILTIAZEM HCL 30 MG TABLET PO SCH ×2 (05:57→11:54)
[2019-01-20 05:58] LABS: ANION GAP 5 (5-19); BLOOD UREA NITROGEN 23 mg/dL (7-20); C-REACTIVE PROTEIN 75.5 mg/L (<10.0); CALCIUM 8.7 mg/dL (8.4-10.2); CARBON DIOXIDE 24 mmol/L (22-30); CHLORIDE 109 mmol/L (98-107); GLUCOSE 86 mg/dL (75-110); POTASSIUM 4.5 mmol/L (3.6-5.0)
[2019-01-20 06:16] LABS: ERYTHROCYTE SEDIMENTATION RATE 36 mm/hr (0-20)
[2019-01-20] MEDS: NORMAL SALINE 1000 ML 1,000 ML IV PRN (07:54)
[2019-01-20] MEDS: DOCUSATE SODIUM 100 MG CAPSULE PO SCH (09:09)
[2019-01-20] MEDS: FAMOTIDINE 20 MG TABLET PO SCH (09:09)
[2019-01-20] MEDS: APIXABAN 5 MG TABLET PO SCH (09:09)
--- NOTE | 2019-01-20 09:25 | EKG REPORT ---
SEVERITY:- ABNORMAL ECG - SINUS RHYTHM NONSPECIFIC T ABNORMALITIES, LATERAL LEADS : Confirmed by: Romero Zaragoza MD 20-Jan-2019 09:24:13
[2019-01-20 12:18] VITALS: BP 135/82
--- NOTE | 2019-01-20 16:54 | PDOC DISCHARGE SUMMARY ---
General - Admit/Disc Date/PCP Admission Date/Primary Care Provider: 01/17/19 03:12 GABRIELLA AYALA Patient was admitted on 01/17/2019 through the emergency room chest pain. She presented with atrial fib with rapid ventricular rate of 150 bpm, this was new onset.. Patient admitted to chest pain as well as lightheadedness with the palpitations. Patient states that 15 to 20 years ago he had an OR Discharge Date: 01/20/19 - Discharge Diagnosis (1) Atrial fibrillation with rapid ventricular response Is this a current diagnosis for this admission?: Yes Summary: 01/20/2019 patient had a very thorough work-up and evaluation by the software quality assurance engineer here Dr. Hogue, multiple medications were tried including dig and Lopressor, however Cardizem was a drug to work the best to put him back in normal sinus rhythm Patient was discharged home on Cardizem 30 mg every 6 hours for his atrial fib patient was discharged his heart rate was in the 60s (2) CAD (coronary artery disease), [place] coronary artery Is this a current diagnosis for this admission?: Yes Summary: Patient's chest pain was strictly related to his atrial fib, patient had a negative cardiac work-up for OR (3) Chest discomfort Is this a current diagnosis for this admission?: Yes Summary: Patient's chest discomfort only occurred during high rates of fibrillation, i.e. in the 140s (4) Essential hypertension Is this a current diagnosis for this admission?: Yes Summary: Patient had no episodes of hypertension while in the hospital in fact if anything his blood pressure was on the low side with systolic around 100 and diastolic around 60. Prior to coming in patient was taking Cozaar 50 mg a day, Dr. Soto asked that we cut this in half to 25 mg a day at discharge (5) HLD (hyperlipidemia) Is this a current diagnosis for this admission?: Yes Summary: Patient is taking 80 mg of Lipitor prior to admission and will continue - Additional Information Resuscitation Status: Full Code Discharge Diet: Cardiac Discharge Activity: Activity As Tolerated, Balance Activity w/Rest Prescriptions: Apixaban [Eliquis 5 mg Tablet] 5 mg PO BID #60 tablet Diltiazem HCl [Cardizem 30 mg Tablet] 30 mg PO Q6 #120 tablet Losartan Potassium [Cozaar 50 mg Tablet] 25 mg PO DAILY #30 tablet Home Medications: Aspirin [Adult Low Dose Aspirin EC] 81 mg PO DAILY 01/17/19 Loratadine [Claritin 10 mg Tablet] 10 mg PO DAILY 01/17/19 [place]-3/Dha/Epa/Fish Oil [Fish Oil 1,000 mg Softgel] 1,000 mg PO DAILY 01/17/19 Pravastatin Sodium 80 mg PO QHS 01/17/19 Tamsulosin HCl [Flomax] 0.4 mg PO DAILY 01/17/19 Apixaban [Eliquis 5 mg Tablet] 5 mg PO BID #60 tablet 01/20/19 Diltiazem HCl [Cardizem 30 mg Tablet] 30 mg PO Q6 #120 tablet 01/20/19 Losartan Potassium [Cozaar 50 mg Tablet] 25 mg PO DAILY #30 tablet 01/20/19 History of Present Illness History of Present Illness: ELZA KENT is a 73 year old male For complete note please to the one dictated above briefly this patient was admitted with new onset atrial fib and rapid ventricular response. This arrhythmia was causing chest pain. Cardiac work-up was negative for OR. Hospital Course Hospital Course: Patient converted to normal sinus rhythm with Cardizem IV and he was try to be maintained on Lopressor converted back to A. fib while on this medication. Cardiology recommended stopping the digoxin and instead placed him on Cardizem 30 mg p.o. every 6 hours. Patient maintained in normal sinus rhythm on this medication. Patient was already taking Eliquis 5 mg twice daily prior to admission this will be continued. Patient was also already taking 81 mg of aspi rin enteric-coated prior to admission and this will be continued as well Cozaar will be 25 mg daily. Physical Exam Vital Signs: Temp Pulse Resp BP Pulse Ox 97.6 F 60 18 135/82 H 98 01/20/19 15:22 01/20/19 15:22 01/20/19 15:22 01/20/19 15:22 01/20/19 15:22 Intake & Output 01/19/19 01/20/19 01/21/19 06:59 06:59 06:59 Intake Total 1825 1480 640 Output Total 222 1850 900 Balance -400 -370 -260 Weight 81.7 kg 82.8 kg General appearance: PRESENT: no acute distress Head exam: PRESENT: atraumatic Respiratory exam: PRESENT: clear to auscultation ayana. ABSENT: rales, rhonchi, wheezes Cardiovascular exam: PRESENT: RRR. ABSENT: diastolic murmur, rubs, systolic murmur Neurological exam: PRESENT: alert, awake, oriented to person, oriented to place, oriented to time, oriented to situation, CN II-XII grossly intact. ABSENT: motor sensory deficit Psychiatric exam: PRESENT: appropriate affect, normal mood. ABSENT: homicidal ideation, suicidal ideation Results Laboratory Results: 01/20/19 05:18 01/20/19 05:18 01/20/19 01/20/19 01/20/19 05:18 05:18 05:18 WBC 6.3 RBC 4.34 L Hgb 13.2 L Hct 39.0 MCV 90 MCH 30.3 MCHC 33.7 RDW 13.5 Plt Count 139 L Sodium 138.2 Potassium 4.5 Chloride 109 H Carbon Dioxide 24 Anion Gap 5 BUN 23 H Creatinine 1.33 H Est GFR ( Amer) > 60 Est GFR (Non-Af Amer) 53 L Glucose 86 Calcium 8.7 Magnesium 2.1 C-Reactive Protein 75.5 H TSH 1.62 01/17/19 01/17/19 01/17/19 01:30 07:40 07:40 Creatine Kinase 48 L CK-MB (CK-2) 0.80 Troponin I < 0.012 < 0.012 01/17/19 01/17/19 01/17/19 13:34 13:34 19:40 Creatine Kinase 51 L 46 L CK-MB (CK-2) 0.96 Troponin I < 0.012 01/17/19 19:40 Creatine Kinase CK-MB (CK-2) 0.80 Troponin I < 0.012 Impressions: Chest X-Ray 01/17/19 01:29 IMPRESSION: Clear lungs. Qualifiers - * PATIENT BEING DISCHARGED WITH ANY OF THE FOLLOWING DIAGNOSIS: No Acute Heart Failure - Is this a Heart Failure Patient?: No Plan Time Spent: Greater than 30 Minutes - Patient is to follow-up with his software quality assurance engineer, Dr. Hogue, in the next 7 to 10 days. Patient is to return to the emergency room for any palpitations or chest pain. Patient is given a 30- day supply of his medications. Patient's was in the room during discharge both of them had their questions answered. Patient seems satisfied with his visit.
--- NOTE | 2019-01-20 19:01 | Progress Note ---
Provider Note Provider Note: CARDIOLOGY PROGRESS NOTE with Dr. Rita Hogue on 01/20/2019. SUBJECTIVE: The patient continues to be in sinus rhythm. There is no recurrence of atrial fibrillation. Note on admission the patient did have some chest soreness which the patient states was reproducible with pressing on the chest suggesting possibly the patient had osteochondritis, which could explain the patient's sed rate and CRP elevation. The patient denies chest pain today. There is no PND orthopnea. There is no palpitations. There is no bleeding on Eliquis. There is no TIA CVA symptoms. There is no leg edema. There is no shortness of breath or wheezing. On further discussion the patient states that he was told in the [facility] that he had mild chronic kidney disease. Note his GFR today is 53 mL suggesting chronic kidney disease stage II. PHYSICAL EXAMINATION: The patient is well-built and well-nourished at present in no acute distress. Selected Entries 01/20/19 12:12 Temperature 97.6 F Temperature Oral Source Pulse Rate 60 Respiratory 18 Rate Blood Pressure 135/82 H Blood Pressure 99 Mean BP Location Left Arm BP Position Supine O2 Sat by Pulse 98 Oximetry Oxygen Delivery Room Air Method HEAD: Is atraumatic normocephalic. EYES: Pupils equal round regular reactive to light accommodation. Extraocular movements are normal. There is no conjunctival pallor. There is no scleral icterus. EARS: Tympanic membranes are intact. External auditory canals are clear. NOSE: There is no deviated nasal septum. There is no inflammation of the nasal mucous membrane. MOUTH: Mucous membranes of mouth are dry tongue is dry. There is no ulcers. THROAT: There is no redness of the oropharynx. There is no exudates. SKIN: There is no skin rashes skin lesions. There is no petechia or ecchymosis. NECK: Supple. There is no JVD. Carotids are equal there is no bruit. There is no lymphadenopathy. There is no goiter. LUNGS: Clear to auscultation without any rhonchi rales or wheezing. Although on palpation there is no chest wall tenderness. HEART: S1- S2 is heard S1 is of normal intensity. There is no S3 gallop. There is no S4 gallop. There is systolic murmur left sternal border and the apex there is no rub. ABDOMEN: Soft. Nontender. There is no hepatospleno megaly. Bowel sounds are well heard. There is no tender areas masses. EXTREMITIES: Femorals well felt. Leg pulses well felt. There is no pedal edema. There is no DVT or cellulitis. There is no sinus or clubbing. There is no calf tenderness. DEFENSE TRAVEL ADMINISTRATOR: The patient is conscious awake alert oriented x3 with no focal deficits. PSYCHIATRIC: The patient does appear to be slightly anxious. But his judgment insight are intact. EKG: Sinus bradycardia. Nonspecific T flattening lateral leads. Labs- All tests 24 hr 01/20/19 01/20/19 01/20/19 05:18 05:18 05:18 WBC 6.3 RBC 4.34 L Hgb 13.2 L Hct 39.0 MCV 90 MCH 30.3 MCHC 33.7 RDW 13.5 Plt Count 139 L ESR 36 H Sodium 138.2 Potassium 4.5 Chloride 109 H Carbon Dioxide 24 Anion Gap 5 BUN 23 H Creatinine 1.33 H Est GFR ( Amer) > 60 Est GFR (Non-Af Amer) 53 L Glucose 86 Calcium 8.7 Magnesium 2.1 C-Reactive Protein 75.5 H TSH 1.62 Chest X-Ray 01/17/19 01:29 IMPRESSION: Clear lungs. IMPRESSION/RECOMMENDATION: 1. Paroxysmal atrial fibrillation: Continue the patient on Cardizem 30 mg p.o. every 6 hours, later we will convert the patient to a long-acting Cardizem preparation. Continue Eliquis. 2. Dehydration: We will hydrate the patient with normal saline at 100 mL/h for a liter. 3. Mild renal insufficiency with a GFR of 51 most likely secondary to dehydration. Patient today states that he was told that he has mild chronic kidney disease. Patient has chronic kidney disease stage II. 4. Hypertension: Blood pressure is on the reasonable level with the patient being on antihypertensives.. 5. Coronary artery disease. History of old myocardial infarction, and history of stents. Note that the patient's chest pressure symptoms most likely related to atrial fibrillation with rapid response. But later would recommend that the patient have an IV Lexiscan Cardiolite stress test, which can be done as an outpatient. Note there is no evidence of acute myocardial infarction this admission. 6. Most likely has anxiety: Recommend anti-anxiolytic agents. 7. Systolic murmur: Most likely has mild mitral regurgitation. Would later as an outpatient get an echocardiogram. 8. Hyperlipidemia: Continue statins. 9. Elevated sedimentation rate and CRP most likely secondary to the patient's bout of costochondritis. Later we will recheck. Clinically there is no evidence of pericarditis. Medications reviewed management plan and medication adjustment discussed with the attending provider on the case. Medical decision making is now of moderate complexity. Cardiac status is stable. Will recommend the patient be discharged home with a follow the patient in the office. We will get an outpatient IV Lexiscan Cardiolite stress test, and an echocardiogram as mentioned earlier. 40 minutes spent on this patient more than 50% of time spent in direct patient care. Will sign off.
== END 2019-01-20 15:41 | disposition home or self-care (01) | DRG 310 ==
LOC: ER 00:10 → EH 03:12 → 3S 09:22
PROVIDERS: ADMIT Emergency Medicine; ATTEND Emergency Medicine
DX: I48.0 Paroxysmal atrial fibrillation (principal); I10 Essential (primary) hypertension; I25.10 Atherosclerotic heart disease of native coronary artery without angina pectoris; E78.5 Hyperlipidemia, unspecified; E86.0 Dehydration; F41.9 Anxiety disorder, unspecified; E78.00 Pure hypercholesterolemia, unspecified; I25.2 Old myocardial infarction; Z79.899 Other long term (current) drug therapy; Z79.01 Long term (current) use of anticoagulants; Z88.0 Allergy status to penicillin; Z79.82 Long term (current) use of aspirin; Z95.5 Presence of coronary angioplasty implant and graft; Z82.49 Family history of ischemic heart disease and other diseases of the circulatory system; Z83.3 Family history of diabetes mellitus
CPT/HCPCS: 36415; 71045; 80048; 80053; 80061; 80162; 82550; 82553; 83735; 84439; 84443; 84481; 84484; 85025; 85027; 85652; 86140; 93005; 93010; 96365; 96366; 96375; 99285; J1160; J1650; J2270; J3490; J7030; J7040

== ENCOUNTER 2019-10-03 10:07 | Observation (INO) | payer OTHER, MEDICARE ==
[2019-10-03] MEDS ORDERED: ASPIRIN 81 MG TABLET, CHEWABLE PO ONE (10:19)
--- NOTE | 2019-10-03 10:20 | ER Document Report ---
ED Medical Screen (RME) - General Chief Complaint: Epigastric Pain Stated Complaint: EPIGASTRIC PAIN Time Seen by Provider: 10/03/19 10:19 Mode of Arrival: Wheelchair Information source: Patient Notes: 73-year-old male presented to ED for complaint of chest pain with palpitations starting yesterday. He does have a history of A. fib. He states he has been taking medications for the A. fib and has never had any problems until yesterday. He states when he took medicine for indigestion yesterday he was pretty sure it was his heart but he was going to try that first before coming to the emergency room. He is alert oriented respirations regular nonlabored speaking in full sentences. He states he does take a baby aspirin a day and is on Eliquis. Chest pain protocol has been started. I have greeted and performed a rapid initial assessment of this patient. A comprehensive ED assessment and evaluation of the patient, analysis of test results and completion of medical decision making process will be conducted by an additional ED providers. TRAVEL OUTSIDE OF THE [place] IN LAST 30 DAYS: No - Related Data Allergies/Adverse Reactions: Penicillins Allergy (Mild, Verified 01/17/19 00:13) Past Medical History - Past Medical History Cardiac Medical History: Reports: Hx Atrial Fibrillation - 01/17/2019 onset, Hx Coronary Artery Disease, Hx Heart Attack - 2001, Hx Hypercholesterolemia, Hx Hypertension Pulmonary Medical History: Denies: Hx Asthma, Hx COPD Neurological Medical History: Denies: Hx Seizures Endocrine Medical History: Denies: Hx Diabetes Mellitus Type 1, Hx Diabetes Mellitus Type 2, Hx Hyperthyroidism, Hx Hypothyroidism Renal/ Medical History: Denies: Hx Peritoneal Dialysis GI Medical History: Denies: Hx Cirrhosis, Hx Crohn's Disease, Hx Hepatitis, Hx Ulcerative Colitis Musculoskeltal Medical History: Denies Hx Arthritis, Denies Hx Gout Skin Medical History: Denies Hx Eczema, Denies Hx Psoriasis Psychiatric Medical History: Denies: Hx Depression Infectious Medical History: Denies: Hx Hepatitis Past Surgical History: Reports: Hx Cardiac Catheterization, Hx Cholecystectomy, Hx Herniorrhaphy, Hx Tonsillectomy - Immunizations Immunizations up to date: Yes Hx Diphtheria, Pertussis, Tetanus Vaccination: Yes
[2019-10-03 10:31] LABS: ABSOLUTE BASOPHILS # (AUTO) 0.1 10^3/uL (0.0-0.2); ABSOLUTE EOSINOPHILS # (AUTO) 0.1 10^3/uL (0.0-0.6); ABSOLUTE LYMPHOCYTES (AUTO) 1.5 10^3/uL (0.5-4.7); ABSOLUTE MONOCYTES (AUTO) 1.1 10^3/uL (0.1-1.4); BASOPHILS % (AUTO) 0.6 % (0-2); EOSINOPHILS % (AUTO) 0.6 % (0-6); HEMATOCRIT 44.4 % (37.9-51.0); HEMOGLOBIN 15.3 g/dL (13.5-17.0); LYMPHOCYTES % (AUTO) 15.6 % (13-45); MEAN CORPUSCULAR HEMOGLOBIN 31.1 pg (27.0-33.4); MEAN CORPUSCULAR HGB CONC 34.6 g/dL (32.0-36.0); MEAN CORPUSCULAR VOLUME 90 fl (80-97); MONOCYTES % (AUTO) 11.6 % (3-13); PLATELET COUNT 179 10^3/uL (150-450); RED BLOOD COUNT 4.93 10^6/uL (4.35-5.55); RED CELL DISTRIBUTION WIDTH 13.9 % (11.5-14.0); SEGMENTED NEUTROPHILS % (AUTO) 71.6 % (42-78); TOTAL CELLS COUNTED % (AUTO) 100 %; WHITE BLOOD COUNT 9.7 10^3/uL (4.0-10.5)
[2019-10-03 10:36] LABS: INTERNATIONAL RATION (INR) 1.35; PROTHROMBIN TIME 16.8 SEC (11.4-15.4)
[2019-10-03 10:46] LABS: ALBUMIN 4.2 g/dL (3.5-5.0); ALKALINE PHOSPHATASE 78 U/L (38-126); ANION GAP 7 (5-19); ASPARTATE AMINO TRANSFERASE 20 U/L (17-59); BILIRUBIN,TOTAL 2.8 mg/dL (0.2-1.3); BLOOD UREA NITROGEN 20 mg/dL (7-20); CALCIUM 9.6 mg/dL (8.4-10.2); CARBON DIOXIDE 25 mmol/L (22-30); CHLORIDE 106 mmol/L (98-107); GLUCOSE 123 mg/dL (75-110); POTASSIUM 4.1 mmol/L (3.6-5.0); TOTAL PROTEIN 7.2 g/dL (6.3-8.2)
--- NOTE | 2019-10-03 11:02 | RADIOLOGY REPORT (SQ) ---
EXAM DESCRIPTION: CHEST 2 VIEWS IMAGES COMPLETED DATE/TIME: 10/03/2019 10:48 am REASON FOR STUDY: chest pain palpitations COMPARISON: 01/17/2019 EXAM PARAMETERS: NUMBER OF VIEWS: two views TECHNIQUE: Digital Frontal and Lateral radiographic views of the chest acquired. RADIATION DOSE: NA LIMITATIONS: none FINDINGS: LUNGS AND PLEURA: No opacities, masses or pneumothorax. No pleural effusion. MEDIASTINUM AND HILAR STRUCTURES: No masses or contour abnormalities. HEART AND VASCULAR STRUCTURES: Heart normal size. No evidence for failure. Tortuous thoracic aorta. BONES: No acute findings. HARDWARE: Cholecystectomy clips. OTHER: No other significant finding. IMPRESSION: No evidence of acute cardiopulmonary process. TECHNICAL DOCUMENTATION: JOB ID: [id number] 2010 [employer]- All Rights Reserved Reading location - IP/workstation name: [email or web address]
[2019-10-03] MEDS ORDERED: DILTIAZEM HCL INJ 25 MG/5 ML VIAL IV ONE (11:53)
[2019-10-03] MEDS ORDERED: NORMAL SALINE 250 ML IV ONE (12:23)
[2019-10-03] MEDS ORDERED: MAGNESIUM SULFATE/D5W 1 GM/100 ML RTUPB IV ONE (12:23)
[2019-10-03] MEDS ORDERED: NORMAL SALINE 500 ML IV ONE (12:59)
[2019-10-03] MEDS ORDERED: CALCIUM GLUCONATE 1000 MG/10 ML INJ IV ONE (13:35)
--- NOTE | 2019-10-03 14:01 | ER Document Report ---
Entered by MANISH CORONA SCRIBE 10/03/19 1139 Acting as scribe for:KERI HOWARD DO ED General - General Chief Complaint: Abdominal Pain Stated Complaint: EPIGASTRIC PAIN Time Seen by Provider: 10/03/19 10:19 Primary Care Provider: [facility] [Primary [facility] Provider] - Follow up as needed Mode of Arrival: Wheelchair Information source: Patient Notes: This 73-year-old male patient presents to the emergency department today with complaints of upper abdominal pain that he describes as "indigestion". Patient states he does not typically have a problem with indigestion and this has "stuck with me" so he does not think it is that. Patient has a history of atrial fibrillation and is on diltiazem. Patient states he has not missed any dosages or had any recent dosage changes. Patient also mentions that he has a cough but only when he takes a deep breath. Patient states "there is a dry spot there when I take a deep breath so I have to cough". Patient denies any nausea, vomiting, diarrhea, or fevers. TRAVEL OUTSIDE OF THE [place] IN LAST 30 DAYS: No - Related Data Allergies/Adverse Reactions: Penicillins Allergy (Mild, Verified 10/03/19 10:30) Past Medical History - General Information source: Patient - Social History Smoking Status: Unknown if Ever Smoked Cigarette use (# per day): No Frequency of alcohol use: None Drug Abuse: None Lives with: Family Family History: CAD, DM, Hypertension Patient has suicidal ideation: No Patient has homicidal ideation: No - Past Medical History Cardiac Medical History: Reports: Hx Atrial Fibrillation, Hx Coronary Artery Disease, Hx Heart Attack - 2001, Hx Hypercholesterolemia, Hx Hypertension Past Surgical History: Reports: Hx Cardiac Catheterization, Hx Cholecystectomy, Hx Herniorrhaphy, Hx Tonsillectomy - Immunizations Immunizations up to date: Yes Hx Diphtheria, Pertussis, Tetanus Vaccination: Yes Review of Systems - Review of Systems Constitutional: denies: Fever EENT: No symptoms reported Cardiovascular: No symptoms reported Respiratory: See HPI, Cough Gastrointestinal: See HPI, Abdominal pain. denies: Diarrhea, Nausea, Vomiting Genitourinary: No symptoms reported Male Genitourinary: No symptoms reported Musculoskeletal: No symptoms reported Skin: No symptoms reported Hematologic/Lymphatic: No symptoms reported Neurological/Psychological: No symptoms reported -: Yes All other systems reviewed and negative Physical Exam - Vital signs Vitals: Resp Pulse Ox 19 95 10/03/19 10:26 10/03/19 10:26 Interpretation: Normal - General General appearance: Appears well, Alert - HEENT Head: Normocephalic, Atraumatic Eyes: Normal Pupils: PERRL - Respiratory Respiratory status: No respiratory distress Chest status: Nontender Breath sounds: Normal Chest palpation: Normal - Cardiovascular Rhythm: Irregularly irregular, Tachycardia Heart sounds: Normal auscultation Murmur: No - Abdominal Inspection: Normal Distension: No distension Bowel sounds: Normal Tenderness: Nontender Organomegaly: No organomegaly - Back Back: Normal, Nontender - Extremities General upper extremity: Normal inspection, Nontender, Normal color, Normal ROM, Normal temperature General lower extremity: Normal inspection, Nontender, Normal color, Normal ROM, Normal temperature, Normal weight bearing. No: Sharda's sign - Neurological Neuro grossly intact: Yes Cognition: Normal Orientation: AAOx4 [place] Coma Scale Eye Opening: Spontaneous Ana Coma Scale Verbal: Oriented [place] Coma Scale Motor: Obeys Commands [place] Coma Scale Total: 15 Speech: Normal Motor strength normal: LUE, RUE, LLE, RLE Sensory: Normal - Psychological Associated symptoms: Normal affect, Normal mood - Skin Skin Temperature: Warm Skin Moisture: Dry Skin Color: Normal Course - Re-evaluation Re-evalutation: 10/03/19 12:15 Patient is a 73-year-old male who comes in in [facility] with RVR and heart rate in the 140s. Patient with some chest discomfort that he thought was just indigestion but it has been persistent. Troponin is negative. Patient is already on Cardizem 100 mg ER. Discussed with Dr. Soto, the patient's sales producer who recommended giving patient IV Cardizem. We will try doing this and increasing the patient's Cardizem, to then follow-up with Dr. Soto on Tuesday. 10/03/19 14:00 Patient unfortunately did not tolerate IV Cardizem. Received 10 mg IV and blood pressure dropped to 80s over 60s consistently. Patient states that he feels better and heart rate is down, although hypotension is concerning. Spoke with Dr. Dacosta again who recommends admission. Patient is now agreeable to this. We will also give calcium gluconate. Patient with no further chest pain at this time. No recent caffeine intake. No recent medication changes. Magnesium is 2.3. Phosphorus is also 2.3. Patient discussed with the hospitalist service, Dr. Diamond and is accepted for admission to observation in [facility]. - Vital Signs Vital signs: Temp Pulse Resp BP Pulse Ox 18 97/72 L 98 10/03/19 12:01 10/03/19 12:01 10/03/19 12:01 - Laboratory Result Diagrams: 10/03/19 10:20 10/03/19 10:20 Laboratory results interpreted by me: 10/03/19 10/03/19 10/03/19 10:20 10:20 10:20 PT 16.8 H Creatinine 1.41 H Est GFR (MDRD) Non-Af 49 L Glucose 123 H Phosphorus 2.3 L Total Bilirubin 2.8 H Critical Care Note - Critical Care Note Total time excluding time spent on procedures (mins): 35 - Evaluation and m anagement of rapid A. fib, coordination with specialist, coordination of admission, counseling of patient Discharge - Discharge Clinical Impression: Atrial fibrillation with rapid ventricular response, Chest discomfort Condition: Stable Disposition: ADMITTED OBSERVATION Admitting Provider: Salvador (Hospitalist) Unit Admitted: [facility] Referrals: [facility] [Primary Care Provider] - Follow up as needed I personally performed the services described in the documentation, reviewed and edited the documentation which was dictated to the scribe in my presence, and it accurately records my words and actions.
[2019-10-03] MEDS ORDERED: ACETAMINOPHEN 325 MG TABLET PO PRN (14:16)
[2019-10-03] MEDS ORDERED: ONDANSETRON HCL INJ/PF 4 MG/2 ML SDV IV PRN (14:16)
[2019-10-03] MEDS ORDERED: MAG HYDROX/AL HYDROX/SIMETH SUSP 30 ML UDCUP PO PRN (14:22)
[2019-10-03] MEDS ORDERED: METOPROLOL TARTRATE PF/INJ 5 MG/5 ML SDV IV PRN (14:38)
--- NOTE | 2019-10-03 14:40 | PDOC H&P ---
History of Present Illness Admission Date/PCP: 10/03/19 14:15 [facility] Patient complains of: Palpitations and throat discomfort History of Present Illness: ELZA KENT is a 73 year old male with a history of chronic atrial fibrillation on Eliquis, hypertension, CKD, BPH, possible CAD, who presents to the hospital after experiencing palpitations and throat discomfort this morning. Symptoms started last night with some throat discomfort and some minimal cough. Describes his discomfort as being in his throat and down to sternum. Denies any radiation otherwise. States it was not pain. This morning patient started to experience palpitations and decided to come to the hospital for evaluation. Patient denies missing any of his medication doses and he took his diltiazem yesterday as well as this morning. Patient denies any relationship of his symptoms to exertion. Denies orthopnea and PND. Denies leg swelling. In the ER patient received diltiazem 10 mg IV bolus with blood pressure going down into the 80s systolic. Subsequently referred for admission. Past Medical History Cardiac Medical History: Reports: Atrial Fibrillation, Coronary Artery Disease, Myocardial Infarction - 2001 but states no stenting was performed, Hyperlipidema, Hypertension Pulmonary Medical History: Denies: Asthma, Chronic Obstructive Pulmonary Disease (COPD) Neurological Medical History: Denies: Seizures Endocrine Medical History: Denies: Diabetes Mellitus Type 1, Diabetes Mellitus Type 2, Hyperthyroidism, Hypothyroidism GI Medical History: Denies: Cirrhosis, Crohn's Disease, Hepatitis, Ulcerative Colitis Musculoskeltal Medical History: Denies: Arthritis, Gout Skin Medical History: Denies: Eczema, Psoriasis Psychiatric Medical History: Denies: Depression Hematology: Denies: Anemia, Bleeding Tendencies Past Surgical History Past Surgical History: Reports: Cholecystectomy, Herniorrhaphy, Tonsillectomy Social History Lives with: Family Smoking Status: Never Smoker Frequency of Alcohol Use: None Hx Recreational Drug Use: No Drugs: None Hx Prescription Drug Abuse: No - Advance Directive Resuscitation Status: Full Code Family History Family History: CAD, DM, Hypertension Parental Family History Reviewed: Yes Children Family History Reviewed: Unknown Sibling(s) Family History Reviewed.: NA Medication/Allergy Home Medications: Aspirin [Adult Low Dose Aspirin EC] 81 mg PO DAILY 01/17/19 Loratadine [Claritin 10 mg Tablet] 10 mg PO DAILY 01/17/19 [place]-3/Dha/Epa/Fish Oil [Fish Oil 1,000 mg Softgel] 1,000 mg PO DAILY 01/17/19 Pravastatin Sodium 80 mg PO QHS 01/17/19 Tamsulosin HCl [Flomax] 0.4 mg PO DAILY 01/17/19 Apixaban [Eliquis 5 mg Tablet] 5 mg PO BID #60 tablet 01/20/19 Diltiazem HCl [Cardizem 30 mg Tablet] 30 mg PO Q6 #120 tablet 01/20/19 Losartan Potassium [Cozaar 50 mg Tablet] 25 mg PO DAILY #30 tablet 01/20/19 Allergies/Adverse Reactions: Penicillins Allergy (Mild, Verified 10/03/19 10:30) Review of Systems Constitutional: ABSENT: chills, fever(s) Eyes: ABSENT: visual disturbances Nose, Mouth, and Throat: ABSENT: headache(s) Cardiovascular: ABSENT: chest pain, dyspnea on exertion Respiratory: PRESENT: cough. ABSENT: sputum Gastrointestinal: ABSENT: abdominal pain, constipation, diarrhea, nausea, vomiting Genitourinary: ABSENT: difficulty urinating, dysuria Integumentary: ABSENT: diaphoresis, wounds Neurological: ABSENT: confusion, dizziness Endocrine: ABSENT: polyuria Allergic/Immunologic: PRESENT: other - Denies rhinorrhea or nasal congestion Physical Exam Vital Signs: Temp Pulse Resp BP Pulse Ox 18 97/72 L 98 10/03/19 12:01 10/03/19 12:01 10/03/19 12:01 Intake & Output 10/02/19 10/03/19 10/04/19 06:59 06:59 06:59 Intake Total 350 Balance 350 Weight 83.5 kg General appearance: PRESENT: no acute distress, cooperative Neck exam: ABSENT: JVD Respiratory exam: PRESENT: clear to auscultation ayana, unlabored. ABSENT: tachypnea, wheezes Cardiovascular exam: PRESENT: irregular rhythm, +S1, +S2, tachycardia GI/Abdominal exam: PRESENT: soft. ABSENT: rebound, rigid, tenderness Rectal exam: PRESENT: deferred Extremities exam: ABSENT: calf tenderness, pedal edema Musculoskeletal exam: PRESENT: ambulatory Neurological exam: PRESENT: alert, awake, oriented to person, oriented to place, oriented to time Psychiatric exam: ABSENT: agitated, anxious Focused psych exam: ABSENT: pressured speech Skin exam: PRESENT: intact Results Laboratory Results: 10/03/19 10:20 10/03/19 10:20 04/10/03/19 10/03/19 10:20 10:20 10:20 WBC 9.7 RBC 4.93 Hgb 15.3 Hct 44.4 MCV 90 MCH 31.1 MCHC 34.6 RDW 13.9 Plt Count 179 Seg Neutrophils % 71.6 Sodium 137.7 Potassium 4.1 Chloride 106 Carbon Dioxide 25 Anion Gap 7 BUN 20 Creatinine 1.41 H Est GFR ( Amer) > 60 Glucose 123 H Calcium 9.6 Phosphorus Magnesium Total Bilirubin 2.8 H AST 20 Alkaline Phosphatase 78 Total Protein 7.2 Albumin 4.2 Lipase 81.7 10/03/19 10/03/19 10:20 10:20 WBC RBC Hgb Hct MCV MCH MCHC RDW Plt Count Seg Neutrophils % Sodium Potassium Chloride Carbon Dioxide Anion Gap BUN Creatinine Est GFR ( Amer) Glucose Calcium Phosphorus 2.3 L Magnesium 2.3 Total Bilirubin AST Alkaline Phosphatase Total Protein Albumin Lipase 10/03/19 10:20 Troponin I < 0.012 Impressions: Chest X-Ray 10/03/19 10:20 IMPRESSION: No evidence of acute cardiopulmonary process. Assessment and Plan - Diagnosis (1) Atrial fibrillation with rapid ventricular response Is this a current diagnosis for this admission?: Yes Plan: Unknown if paroxysmal versus persistent. Currently heart rate persisting in A. fib pain 100-1 20s. Discomfort involving throat down to sternal angle may have simply been from palpitations. No EKG showed findings suggestive of acute ischemia. We will admit to [facility]. Monitor on telemetry. I have consulted patient's resource management specialist Dr. Soto We will give a dose of digoxin 0.5 mg once given soft blood pressures On oral diltiazem Continue Eliquis IV Lopressor as needed First troponin negative, will check 1 more. TSH checked last year was normal. (2) Essential hypertension Is this a current diagnosis for this admission?: Yes Plan: Continue losartan. (3) CKD (chronic kidney disease), stage III Is this a current diagnosis for this admission?: Yes Plan: Baseline creatinine seems to be around 1.3. Currently 1.4 which is close to baseline. Avoid nephrotoxic meds. - Time Time Spent with patient: 25-34 minutes
--- NOTE | 2019-10-03 14:42 | ADVANCED CARE ---
- Diagnosis (1) Atrial fibrillation with rapid ventricular response Diagnosis Current: Yes Attendance: Patient and myself Resuscitation Status: Full Code Discussion: Elaborately discussed patient's CODE STATUS. Explained the significance of having such advanced planning. Patient opts to be a full code. Patient is also okay with intubation if needed even in the absence of cardiac arrest. Also discussed patient's atrial fibrillation and hypotension. I explained the process of synchronized cardioversion and asked patient if this is something he is okay with being done if he ever became unstable in RVR without adequate control from medication. Patient states that if the procedure is needed he is okay with it being performed if indicated. Time Spent: 16 mins
[2019-10-03] MEDS ORDERED: DIGOXIN INJ 0.5 MG/2 ML AMPULE IV ONE ×2 (15:00→22:00)
[2019-10-03] MEDS: PHOSPHORUS #1 250 MG TABLET PO SCH ×2 (16:38→21:28)
[2019-10-03] MEDS: APIXABAN 5 MG TABLET PO SCH (17:35)
--- NOTE | 2019-10-03 18:46 | EKG REPORT ---
SEVERITY:- ABNORMAL ECG - ATRIAL FIBRILLATION WITH RAPID V-RATE NONSPECIFIC T ABNORMALITIES, LATERAL LEADS : Confirmed by: Erna Cobos 03-Oct-2019 18:45:24
[2019-10-03] MEDS ORDERED: ATORVASTATIN CALCIUM 20 MG TABLET PO SCH (22:00)
[2019-10-03] MEDS ORDERED: HEPARIN SOD (PORCINE) 5,000 UNIT/ML 1 ML VIAL SUBCUT SCH (22:00)
--- NOTE | 2019-10-03 22:22 | PDOC CONSULTATION ---
Consultation-Blank Consultation: CARDIOLOGY CONSULTATION by Dr. Rita Hogue on 10/03/2019. Patient seen at 4:30 PM. 60 minutes spent as patient more than 50% time spent in direct patient care. REASON FOR CONSULTATION:: Patient now with recurrence of atrial fibrillation with now fast ventricular response. CONSULT REQUESTING PHYSICIAN: Dr. Franco, [facility] HISTORY OF PRESENT ILLNESS: Patient is well-known to me and follows up with me regularly in the clinic. Patient is a 73-year-old male with known history of coronary artery disease, remote history of HI, history of stent in unknown vessel, paroxysmal atrial fibrillation, and hypertension who states that last night he had some discomfort in his throat and cough and subsequently developed palpitations. The palpitations persisted this morning and hence he called me and I asked him to go to the emergency room. He also stated that he felt congested in the chest but was not really short of breath. There is no cough or wheezing or sputum production. The patient states that he has been compliant with medications. He is also chronically on Eliquis and has no symptoms of TIA or CVA. He denies any clear-cut anginal symptoms. In the emergency room he was found to be in atrial fibrillation with rapid ventricular response with a initially of good blood pressure but which went down into the 80s systolic after he got a bolus of Cardizem intravenously. He has no chest pain or discomfort. There is no shortness of breath. There is no PND orthopnea. ast Medical History Cardiac Medical History: Reports: Coronary Artery Disease, Myocardial Infarction - 2002, Hyperlipidema, Hypertension Pulmonary Medical History: Denies: Asthma, Chronic Obstructive Pulmonary Disease (COPD) EENT Medical History: Reports: Nose - Chronic allergic rhinitis Denies: Cataracts, Ears - Hearing aids Neurological Medical History: Denies: Hemorrhagic CVA, Ischemic CVA, Multiple Sclerosis, Seizures Endocrine Medical History: Denies: Diabetes Mellitus Type 1, Diabetes Mellitus Type 2, Hyperthyroidism, Hypothyroidism, Obesity Renal/ Medical History: Reports: Other - Benign prostatic hypertrophy Denies: Chronic Kidney Disease, Nephrolithiasis Malignancy Medical History: Reports: None GI Medical History: Denies: Cirrhosis, Crohn's Disease, Hepatitis, Ulcerative Colitis Musculoskeltal Medical History: Denies: Arthritis, Gout Skin Medical History: Denies: Eczema, Psoriasis Psychiatric Medical History: Reports: None Denies: Alcohol Dependency, Substance Abuse, Tobacco Dependency Traumatic Medical History: Reports: None Hematology: Denies: Anemia, Bleeding Tendencies Infectious Medical History: Reports: None Past Surgical History Past Surgical History: Reports: Cholecystectomy, Herniorrhaphy, Tonsillectomy Social History Information Source: Patient Lives with: Spouse/Significant other Smoking Status: Never Smoker Frequency of Alcohol Use: None Hx Recreational Drug Use: No Drugs: None Hx Prescription Drug Abuse: No - Advance Directive Resuscitation Status: Full Code Surrogate healthcare decision maker:: The patient's surrogate healthcare decision maker is his . Family History Family History: CAD, DM, Hypertension. denies: Malignancy Medication/Allergy Allergies/Adverse Reactions: Penicillins Allergy Review of Systems Constitutional: ABSENT: chills, fever(s) Eyes: ABSENT: visual disturbances, other - Eye pain Ears: ABSENT: hearing changes, other - Ear pain Nose, Mouth, and Throat: ABSENT: mouth pain, complains of transient sore throat Cardiovascular: PRESENT: as per HPI, chest pain, dyspnea on exertion, pal pitations. ABSENT: edema, orthropnea Respiratory: PRESENT: as per HPI, dyspnea. ABSENT: cough Gastrointestinal: ABSENT: abdominal pain, constipation, diarrhea, nausea, vomiting Genitourinary: ABSENT: dysuria, hematuria Integumentary: ABSENT: diaphoresis, pruritus, rash Neurological: ABSENT: confusion, convulsions, focal weakness, memory loss, syncope Psychiatric: PRESENT: as per HPI, anxiety. ABSENT: depression Endocrine: ABSENT: cold intolerance, heat intolerance Hematologic/Lymphatic: ABSENT: easy bleeding, easy bruising Allergic/Immunologic: PRESENT: seasonal rhinorrhea The patient has not traveled outside [place], and the patient has no symptoms suggestive COVID19. Current Medications Generic Name Dose Route Start Last Admin Trade Name Freq PRN Reason Stop Dose Admin Acetaminophen 650 mg 10/03/19 14:16 Tylenol 325 Mg Tablet PO 11/02/19 14:15 Q4HP PRN FOR PAIN Al Hydrox/Mg Hydrox/Simethicone 15 ml 10/03/19 14:22 Maalox Plus Susp 30 Udcup PO 11/02/19 14:21 Q6HP PRN HEARTBURN Apixaban 5 mg 10/03/19 18:00 10/03/19 17:35 Eliquis 5 Mg Tablet PO 11/02/19 17:59 5 mg BID MIAN Administration Aspirin 81 mg 10/04/19 10:00 Ecotrin 81 Mg Ec Tablet PO 11/03/19 09:59 DAILY [facility] Atorvastatin Calcium 20 mg 10/03/19 22:00 10/03/19 21:28 Lipitor 20 Mg Tablet PO 11/02/19 21:59 20 mg QHS MIAN Administration Diltiazem HCl 180 mg 10/04/19 10:00 Cardizem Cd 180 Mg Capsule PO 11/03/19 09:59 DAILY MIAN Loratadine 10 mg 10/04/19 10:00 Claritin 10 Mg Tablet PO 11/03/19 09:59 DAILY [facility] Metoprolol Tartrate 2.5 mg 10/03/19 14:38 Lopressor Inj/Pf 5 Mg/5 Ml Sdv IV 11/02/19 14:37 Q6HP PRN GIVE FOR HR >120 Ondansetron HCl 4 mg 10/03/19 14:16 Zofran Inj/Pf 4 Mg/2 Ml Sdv IV 11/02/19 14:15 Q8HP PRN FOR NAUSEA/VOMITING Sodium Chloride 2.5 ml 10/03/19 22:00 10/03/19 21:29 Saline Flush 2.5 Ml Monoject Prefil Syrin IV 11/02/19 21:59 2.5 ml Q8 MIAN Administration Tamsulosin HCl 0.4 mg 10/04/19 10:00 Flomax 0.4 Mg Cap.Sr PO 11/03/19 09:59 DAILY [facility] Discontinued Medications Generic Name Dose Route Start Last Admin Trade Name Freq PRN Reason Stop Dose Admin Aspirin 324 mg 10/03/19 10:19 10/03/19 10:25 Aspirin 81 Mg Chewable Tablet PO 10/03/19 10:20 324 mg NOW ONE Administration Calcium Gluconate 1,000 mg 10/03/19 13:35 10/03/19 14:16 Calcium Gluconate Inj 1000 Mg/10 Ml IV 10/03/19 13:36 1,000 mg NOW ONE Administration Digoxin 0.5 mg 10/03/19 15:00 10/03/19 16:38 Lanoxin Inj 0.5 Mg/2 Ml Ampule IV 10/03/19 15:01 0.5 mg NOW ONE Administration Digoxin 0.25 mg 10/03/19 22:00 10/03/19 21:28 Lanoxin Inj 0.5 Mg/2 Ml Ampule IV 10/03/19 22:01 0.25 mg PALOMO@2200 ONE Administration Diltiazem HCl 10 mg 10/03/19 11:53 10/03/19 12:02 Cardizem Inj 25 Mg/5 Ml Vial IV 10/03/19 11:54 10 mg NOW ONE Administration Heparin Sodium (Porcine) 5,000 unit 10/03/19 22:00 Heparin Inj 5,000 Units/Ml 1 Ml Vial SUBCUT 11/02/19 21:59 Q8 MIAN Magnesium Sulfate/Dextrose 1 gm in 100 mls @ 100 mls/hr 10/03/19 12:23 10/03/19 13:30 Magnesium Sulfate Rtu-[id number] 1 Gm/100 Ml Premix IV 10/03/19 13:22 Infused NOW ONE Infusion Sodium Chloride 250 mls @ 0 mls/hr 10/03/19 12:23 10/03/19 13:28 Nacl 0.9% 250 Ml Iv Soln IV 10/03/19 12:24 Infused NOW ONE Infusion Wide Open Sodium Chloride 500 mls @ 0 mls/hr 10/03/19 12:59 10/03/19 14:23 Nacl 0.9% 500 Ml Iv Soln IV 10/03/19 13:00 Infused NOW ONE Infusion Wide Open Losartan Potassium 25 mg 10/04/19 10:00 Cozaar 50 Mg Tablet PO 11/03/19 09:59 DAILY MIAN Potassium Phosphate 500 mg 10/03/19 15:00 10/03/19 21:28 K-Phos Neutral 250 Mg Tablet PO 10/03/19 21:01 500 mg Q6A MIAN Administration PHYSICAL EXAMINATION: The patient is well-built and well-nourished in no acute distress Selected Entries 10/03/19 10/03/19 10/03/19 14:16 14:30 16:02 Temperature 98.2 F Temperature Oral Source Pulse Rate [ 105 H Finger] Heart Rate ( 112 Monitors) Respiratory 20 17 Rate Blood Pressure 93/68 L Blood Pressure 100/64 [Right Upper Arm] Blood Pressure 76 Mean Blood Pressure 76 Mean [Right Upper Arm] Blood Pressure Supine Position [Right Upper Arm] O2 Sat by Pulse 95 97 Oximetry Oxygen Delivery Room Air Method ( includes room air) HEAD: Is atraumatic normocephalic. EYES: Pupils equal round regular reactive to light accommodation. Extraocular movements are normal. There is no conjunctival pallor. There is no scleral icterus. EARS: Tympanic membranes are intact. External auditory canals are clear. NOSE: There is no deviated nasal septum. There is no inflammation of the nasal mucous membrane. MOUTH: Mucous membranes of mouth are dry tongue is dry. There is no ulcers. THROAT: There is no redness of the oropharynx. There is no exudates. SKIN: There is no skin rashes skin lesions. There is no petechia or ecchymosis. NECK: Supple. There is no JVD. Carotids are equal there is no bruit. There is no lymphadenopathy. There is no goiter. LUNGS: Clear to auscultation without any rhonchi rales or wheezing. Although on palpation there is no chest wall tenderness. HEART: S1- S2 is heard S1 is of normal intensity. There is no S3 gallop. There is no S4 gallop. There is systolic murmur left sternal border and the apex there is no rub. ABDOMEN: Soft. Nontender. There is no hepatospleno megaly. Bowel sounds are well heard. There is no tender areas masses. EXTREMITIES: Femorals well felt. Leg pulses well felt. There is no pedal edema. There is no DVT or cellulitis. There is no sinus or clubbing. There is no calf tenderness. CAR CUSTOMIZER: The patient is conscious awake alert oriented x3 with no focal deficits. PSYCHIATRIC: The patient does appear to be slightly anxious. But his judgment insight are intact. Labs- Entire Visit 10/03/19 10/03/19 10/03/19 10:20 10:20 10:20 WBC 9.7 RBC 4.93 Hgb 15.3 Hct 44.4 MCV 90 MCH 31.1 MCHC 34.6 RDW 13.9 Plt Count 179 Lymph % (Auto) 15.6 [place] % (Auto) 11.6 Eos % (Auto) 0.6 Baso % (Auto) 0.6 Absolute Neuts (auto) 7.0 Absolute Lymphs (auto) 1.5 Absolute Monos (auto) 1.1 Absolute Eos (auto) 0.1 Absolute Basos (auto) 0.1 Seg Neutrophils % 71.6 PT INR Sodium 137.7 Potassium 4.1 Chloride 106 Carbon Dioxide 25 Anion Gap 7 BUN 20 Creatinine 1.41 H Est GFR ( Amer) > 60 Est GFR (MDRD) Non-Af 49 L Glucose 123 H Calcium 9.6 Phosphorus Magnesium Total Bilirubin 2.8 H Direct Bilirubin 0.0 Neonat Total Bilirubin Not Reportable Neonat Direct Bilirubin Not Reportable Neonat Indirect Bili Not Reportable AST 20 ALT 16 Alkaline Phosphatase 78 Troponin I < 0.012 Total Protein 7.2 Albumin 4.2 Lipase 10/03/19 10/03/19 10/03/19 10:20 10:20 10:20 WBC RBC Hgb Hct MCV MCH MCHC RDW Plt Count Lymph % (Auto) [place] % (Auto) Eos % (Auto) Baso % (Auto) Absolute Neuts (auto) Absolute Lymphs (auto) Absolute Monos (auto) Absolute Eos (auto) Absolute Basos (auto) Seg Neutrophils % PT 16.8 H INR 1.35 Sodium Potassium Chloride Carbon Dioxide Anion Gap BUN Creatinine Est GFR ( Amer) Est GFR (MDRD) Non-Af Glucose Calcium Phosphorus Magnesium 2.3 Total Bilirubin Direct Bilirubin Neonat Total Bilirubin Neonat Direct Bilirubin Neonat Indirect Bili AST ALT Alkaline Phosphatase Troponin I Total Protein Albumin Lipase 81.7 10/03/19 10/03/19 10:20 15:25 WBC RBC Hgb Hct MCV MCH MCHC RDW Plt Count Lymph % (Auto) [place] % (Auto) Eos % (Auto) Baso % (Auto) Absolute Neuts (auto) Absolute Lymphs (auto) Absolute Monos (auto) Absolute Eos (auto) Absolute Basos (auto) Seg Neutrophils % PT INR Sodium Potassium Chloride Carbon Dioxide Anion Gap BUN Creatinine Est GFR ( Amer) Est GFR (MDRD) Non-Af Glucose Calcium Phosphorus 2.3 L Magnesium Total Bilirubin Direct Bilirubin Neonat Total Bilirubin Neonat Direct Bilirubin Neonat Indirect Bili AST ALT Alkaline Phosphatase Troponin I 0.053 Total Protein Albumin Lipase Chest X-Ray 10/03/19 10:20 IMPRESSION: No evidence of acute cardiopulmonary process. IMPRESSION/RECOMMENDATION: 1. Atrial fibrillation with rapid ventricular response due to recurrence. In view of the soft blood pressure, will start the patient on digoxin. We will give the patient digoxin 0.5 mg IV push x1 followed by 0.25 mg IV push 6 hours later. We will check a dig level in the morning. Continue Eliquis.. 2. Dehydration: We will hydrate the patient with normal saline at 100 mL/h for a liter. 3. Mild renal insufficiency with a GFR of 51 most likely secondary to dehydration. Patient denies any prior history of chronic kidney disease. Will recheck GFR after hydration. 4. Hypertension: Blood pressure is on the lower normal side. Hopefully the blood pressure will improve after hydration. 5. Coronary artery disease. History of old myocardial infarction, and history of stent. The patient has no anginal symptoms. The first set of troponin is negative/indeterminate. The patient had a IV Lexiscan Cardiolite stress testing done in the office on 02/19/2019 and this showed no reversible ischemia there was a small area of myocardial infarction involving the basal inferior wall. 6. Most likely has anxiety: Recommend anti-anxiolytic agents. 7. Systolic murmur: He has mild mitral regurgitation by outpatient echocardiogram. 8. Hyperlipidemia: Continue statins. We will check the patient's lipid levels in the a.m. Medical decision making is of high complexity. Medications reviewed medications added/adjusted. Medical decision making and management plan were discussed with the attending provider on the case. 60 minutes spent on this patient more than 50% of time spent in direct patient care. Will follow.
[2019-10-03] MEDS ORDERED: NORMAL SALINE 1000 ML 1,000 ML IV PRN (23:20)
[2019-10-04 06:11] LABS: ANION GAP 5 (5-19); BLOOD UREA NITROGEN 19 mg/dL (7-20); CALCIUM 8.6 mg/dL (8.4-10.2); CARBON DIOXIDE 23 mmol/L (22-30); CHLORIDE 107 mmol/L (98-107); DIGOXIN 1.56 ng/mL (0.8-2.0); GLUCOSE 93 mg/dL (75-110); PHOSPHORUS 3.4 mg/dL (2.5-4.5); POTASSIUM 4.4 mmol/L (3.6-5.0)
[2019-10-04] MEDS: APIXABAN 5 MG TABLET PO SCH (09:03)
--- NOTE | 2019-10-04 09:58 | EKG REPORT ---
SEVERITY:- ABNORMAL ECG - SINUS RHYTHM NONSPECIFIC T ABNORMALITIES, LATERAL LEADS : Confirmed by: Erna Cobos 04-Oct-2019 09:57:07
[2019-10-04] MEDS ORDERED: LOSARTAN POTASSIUM 50 MG TABLET PO SCH (10:00)
[2019-10-04] MEDS ORDERED: ASPIRIN 81 MG TABLET, ENT COATED PO SCH (10:00)
[2019-10-04] MEDS ORDERED: DILTIAZEM HCL 180 MG CAPSULE.CR PO SCH (10:00)
[2019-10-04] MEDS ORDERED: LORATADINE 10 MG TABLET PO SCH (10:00)
[2019-10-04] MEDS ORDERED: TAMSULOSIN HCL 0.4 MG CAP.SR.24H PO SCH (10:00)
[2019-10-04] MEDS ORDERED: DILTIAZEM HCL 120 MG CAP.SR.24H PO SCH (10:00)
--- NOTE | 2019-10-04 11:22 | PDOC DISCHARGE SUMMARY ---
Impression - Admit/DC Date/PCP Admission Date/Primary Care Provider: 10/03/19 14:15 [facility] Discharge Date: 10/04/19 - Discharge Diagnosis (1) Atrial fibrillation with rapid ventricular response Is this a current diagnosis for this admission?: Yes (2) Essential hypertension Is this a current diagnosis for this admission?: Yes (3) CKD (chronic kidney disease), stage III Is this a current diagnosis for this admission?: Yes (4) Hypophosphatemia Is this a current diagnosis for this admission?: Yes - Additional Information Resuscitation Status: Full Code Discharge Diet: As Tolerated, Cardiac Discharge Activity: Activity As Tolerated Referrals: LUIZA DUNHAM MD [ACTIVE STAFF] - 10/11/19 11:00 am [facility]Primary [facility] - Follow up as needed (Patient has to make an appointment with the [facility]) Prescriptions: Diltiazem HCl [Cardizem Cd 120 mg Capsule] 120 mg PO Q12 30 Days cap.sr.24h Home Medications: Loratadine [Claritin 10 mg Tablet] 10 mg PO DAILY 01/17/19 Pravastatin Sodium 80 mg PO QHS 01/17/19 Tamsulosin HCl [Flomax] 0.4 mg PO DAILY 01/17/19 Apixaban [Eliquis 5 mg Tablet] 5 mg PO BID #60 tablet 01/20/19 Aspirin [Ecotrin 81 mg EC Tablet] 81 mg PO DAILY 10/03/19 Diltiazem HCl [Cardizem Cd 120 mg Capsule] 120 mg PO Q12 30 Days cap.sr.24h 10/04/19 History of Present Illiness History of Present Illness: ELZA KENT is a 73 year old male with a history of chronic atrial fibrillation on Eliquis, hypertension, CKD, BPH, possible CAD, who presents to the hospital after experiencing palpitations and throat discomfort this morning. Symptoms started last night with some throat discomfort and some minimal cough. Describes his discomfort as being in his throat and down to sternum. Denies any radiation otherwise. States it was not pain. This morning patient started to experience palpitations and decided to come to the hospital for evaluation. Patient denies missing any of his medication doses and he took his diltiazem yesterday as well as this morning. Patient denies any relationship of his symptoms to exertion. Denies orthopnea and PND. Denies leg swelling. In the ER patient received diltiazem 10 mg IV bolus with blood pressure going down into the 80s systolic. Subsequently referred for admission. Hospital Course Hospital Course: Patient was admitted to the hospital for evaluation of and treatment of atrial fibrillation with rapid ventricular response. Patient seems to have paroxysmal atrial fibrillation. Chest x-ray was performed which was normal. Patient did not show any evidence of signs of any acute infection. Lab work revealed no evidence of leukocytosis, no anemia and showed hypophosphatemia. Patient with received adequate electrolyte repletion. On presentation patient also had soft blood pressures and his rate was controlled with helpful digoxin. He also received normal saline 2 boluses in the ER and a continuous infusion through the night. His losartan was stopped. Today patient has converted back into sinus rhythm. Digoxin level is normal but patient will not be continued on digoxin due to his CKD. Creatinine seems to be at baseline and showed no changes with IV fluid administration. Patient was seen by his primary communications engineering technician Dr. Soto who recommends changing his diltiazem regiment to 120 mg twice a day and discontinuation of losartan. On discussion with his communications engineering technician, patient had recent echocardiogram that showed normal ejection fraction. Patient blood pressure has normalized today and patient ambulated without any tachycardia and is safe for discharge. Physical Exam Vital Signs: Temp Pulse Resp BP Pulse Ox 98.5 F 65 18 104/64 95 10/04/19 07:18 10/04/19 07:18 10/04/19 07:18 10/04/19 07:18 10/04/19 07:18 Intake & Output 10/03/19 10/04/19 10/05/19 06:59 06:59 06:59 Intake Total 1090 1000 Balance 1090 1000 Weight 83.1 kg General appearance: PRESENT: no acute distress, cooperative Cardiovascular exam: PRESENT: RRR, +S1, +S2 Neurological exam: PRESENT: alert, awake, oriented to person, oriented to place, oriented to time Results Laboratory Results: WBC 9.7 10^3/uL (4.0-10.5) 10/03/19 10:20 RBC 4.93 10^6/uL (4.35-5.55) 10/03/19 10:20 Hgb 15.3 g/dL (13.5-17.0) 10/03/19 10:20 Hct 44.4 % (37.9-51.0) 10/03/19 10:20 MCV 90 fl (80-97) 10/03/19 10:20 MCH 31.1 pg (27.0-33.4) 10/03/19 10:20 MCHC 34.6 g/dL (32.0-36.0) 10/03/19 10:20 RDW 13.9 % (11.5-14.0) 10/03/19 10:20 Plt Count 179 10^3/uL (150-450) 10/03/19 10:20 Lymph % (Auto) 15.6 % (13-45) 10/03/19 10:20 [place] % (Auto) 11.6 % (3-13) 10/03/19 10:20 Eos % (Auto) 0.6 % (0-6) 10/03/19 10:20 Baso % (Auto) 0.6 % (0-2) 10/03/19 10:20 Absolute Neuts (auto) 7.0 10^3/uL (1.7-8.2) 10/03/19 10:20 Absolute Lymphs (auto) 1.5 10^3/uL (0.5-4.7) 10/03/19 10:20 Absolute Monos (auto) 1.1 10^3/uL (0.1-1.4) 10/03/19 10:20 Absolute Eos (auto) 0.1 10^3/uL (0.0-0.6) 10/03/19 10:20 Absolute Basos (auto) 0.1 10^3/uL (0.0-0.2) 10/03/19 10:20 Seg Neutrophils % 71.6 % (42-78) 10/03/19 10:20 PT 16.8 SEC (11.4-15.4) H 10/03/19 10:20 INR 1.35 10/03/19 10:20 Sodium 134.9 mmol/L (137-145) L 10/04/19 05:11 Potassium 4.4 mmol/L (3.6-5.0) 10/04/19 05:11 Chloride 107 mmol/L (98-107) 10/04/19 05:11 Carbon Dioxide 23 mmol/L (22-30) 10/04/19 05:11 Anion Gap 5 (5-19) 10/04/19 05:11 BUN 19 mg/dL (7-20) 10/04/19 05:11 Creatinine 1.44 mg/dL (0.52-1.25) H 10/04/19 05:11 Est GFR ( Amer) 58 (>60) L 10/04/19 05:11 Est GFR (MDRD) Non-Af 48 (>60) L 10/04/19 05:11 Glucose 93 mg/dL (75-110) 10/04/19 05:11 Calcium 8.6 mg/dL (8.4-10.2) 10/04/19 05:11 Phosphorus 3.4 mg/dL (2.5-4.5) 10/04/19 05:11 Magnesium 2.1 mg/dL (1.6-2.3) 10/04/19 05:11 Total Bilirubin 2.8 mg/dL (0.2-1.3) H 10/03/19 10:20 Direct Bilirubin 0.0 mg/dL (0.0-0.4) 10/03/19 10:20 Neonat Total Bilirubin Not Reportable 10/03/19 10:20 Neonat Direct Bilirubin Not Reportable 10/03/19 10:20 Neonat Indirect Bili Not Reportable 10/03/19 10:20 AST 20 U/L (17-59) 10/03/19 10:20 ALT 16 U/L (<50) 10/03/19 10:20 Alkaline Phosphatase 78 U/L (38-126) 10/03/19 10:20 Troponin I 0.039 ng/mL 10/04/19 08:58 Total Protein 7.2 g/dL (6.3-8.2) 10/03/19 10:20 Albumin 4.2 g/dL (3.5-5.0) 10/03/19 10:20 Lipase 81.7 U/L (23-300) 10/03/19 10:20 Digoxin 1.56 ng/mL (0.8-2.0) 10/04/19 05:11 10/03/19 10/03/19 10/04/19 10:20 15:25 08:58 Troponin I < 0.012 0.053 0.039 Impressions: Chest X-Ray 10/03/19 10:20 IMPRESSION: No evidence of acute cardiopulmonary process. Plan Time Spent: Less than 30 Minutes Stroke Is this a Stroke Patient?: No Acute Heart Failure - Is this a Heart Failure Patient?: No
[2019-10-04 13:40] VITALS: BP 131/82
--- NOTE | 2019-10-04 18:45 | Progress Note ---
Provider Note Provider Note: CARDIOLOGY PROGRESS NOTE by Dr. Rita Hogue on 10/04/2019. SUBJECTIVE: The patient converted to sinus rhythm overnight. He denies any chest pain or discomfort. There is no shortness of breath. There is no bleeding on Eliquis. There is no TIA CVA symptoms. There is no ventricular arrhythmias on the monitor. After the patient ambulated his blood pressure has come up to good levels. PHYSICAL EXAMINATION: The patient is well-built and well-nourished at present in no acute distress. Selected Entries 10/04/19 12:33 Temperature 97.3 F Temperature Oral Source Pulse Rate 70 Respiratory 18 Rate Blood Pressure 131/82 H Blood Pressure 98 Mean BP Location Left Arm BP Position Sitting O2 Sat by Pulse 97 Oximetry Oxygen Delivery Room Air Method HEAD: Is atraumatic normocephalic. EYES: Pupils equal round regular reactive to light accommodation. Extraocular movements are normal. There is no conjunctival pallor. There is no scleral icterus. EARS: Tympanic membranes are intact. External auditory canals are clear. NOSE: There is no deviated nasal septum. There is no inflammation of the nasal mucous membrane. MOUTH: Mucous membranes of mouth and tongue are moist.. There is no ulcers. THROAT: There is no redness of the oropharynx. There is no exudates. SKIN: There is no skin rashes skin lesions. There is no petechia or ecchymosis. NECK: Supple. There is no JVD. Carotids are equal there is no bruit. There is no lymphadenopathy. There is no goiter. LUNGS: Clear to auscultation without any rhonchi rales or wheezing. Although on palpation there is no chest wall tenderness. HEART: S1- S2 is heard S1 is of normal intensity. There is no S3 gallop. There is no S4 gallop. There is systolic murmur left sternal border and the apex there is no rub. ABDOMEN: Soft. Nontender. There is no hepatospleno megaly. Bowel sounds are well heard. There is no tender areas masses. EXTREMITIES: Femorals well felt. Leg pulses well felt. There is no pedal edema. There is no DVT or cellulitis. There is no sinus or clubbing. There is no calf tenderness. LAB DIRECTOR: The patient is conscious awake alert oriented x3 with no focal deficits. PSYCHIATRIC: The patient does appear to be slightly anxious. But his judgment insight are intact. EKG: Shows sinus rhythm. Minor nonspecific T changes lateral leads. Labs- All tests 24 hr 10/04/19 10/04/19 05:11 08:58 Sodium 134.9 L Potassium 4.4 Chloride 107 Carbon Dioxide 23 Anion Gap 5 BUN 19 Creatinine 1.44 H Est GFR ( Amer) 58 L Est GFR (MDRD) Non-Af 48 L Glucose 93 Calcium 8.6 Phosphorus 3.4 Magnesium 2.1 Troponin I 0.039 Digoxin 1.56 IMPRESSION/RECOMMENDATION: 1. Paroxysmal atrial fibrillation: Patient converted to sinus rhythm. In view of the patient renal insufficiency will not continue digoxin. Will increase the Cardizem CD [id number] mg p.o. twice daily continue 2. Dehydration: Resolved after hydration. 3. Patient most likely has chronic kidney disease stage III. Patient GFR is 48 mL/min. 4. Hypertension: Blood pressure is now well controlled. 5. Coronary artery disease. History of old myocardial infarction, and history of stent. The patient did not have typical anginal symptoms, but the throat discomfort and recurrence of atrial fibrillation is worrisome. The first set of troponin is negative/indeterminate, as also 2 days levels. The patient had a IV Lexiscan Cardiolite stress testing done in the office on 02/19/2019 and this showed no reversible ischemia there was a small area of myocardial infarction involving the basal inferior wall. Hence in view of the patient's dubious symptoms which could be atypical angina and with recurrence of atrial fibrillation we will recheck the patient's IV Lexiscan Cardiolite stress test and also repeat the patient's echocardiogram. Will discuss with the [facility] physician. This test can be done as an outpatient. 6. Systolic murmur: He has mild mitral regurgitation by outpatient ech ocardiogram. 7. Hyperlipidemia: Continue statins. Medications reviewed. Medical regimen and management plan discussed with attending physician on the case. Medical decision making is of moderate complexity. Cardiac status is stable. The patient can be discharged and he will follow-up with me in the office. Patient given appointment to see me on , October 10 at 11 AM in the office. Will sign off
== END 2019-10-04 13:57 | disposition home or self-care (01) ==
LOC: ER 10:07 → EH 14:15 → 3S 15:59
PROVIDERS: ADMIT Internal Medicine; ATTEND Internal Medicine
DX: I48.20 Chronic atrial fibrillation, unspecified (principal); I12.9 Hypertensive chronic kidney disease with stage 1 through stage 4 chronic kidney disease, or unspecified chronic kidney disease; N18.3 Chronic kidney disease, stage 3 (moderate); E83.39 Other disorders of phosphorus metabolism; R09.89 Other specified symptoms and signs involving the circulatory and respiratory systems; J30.2 Other seasonal allergic rhinitis; I25.10 Atherosclerotic heart disease of native coronary artery without angina pectoris; E78.5 Hyperlipidemia, unspecified; F41.9 Anxiety disorder, unspecified; R05 Cough; E86.0 Dehydration; I34.0 Nonrheumatic mitral (valve) insufficiency; I25.2 Old myocardial infarction; N40.0 Benign prostatic hyperplasia without lower urinary tract symptoms; Z79.899 Other long term (current) drug therapy; Z90.49 Acquired absence of other specified parts of digestive tract; Z98.890 Other specified postprocedural states; Z82.49 Family history of ischemic heart disease and other diseases of the circulatory system; Z79.02 Long term (current) use of antithrombotics/antiplatelets; Z79.82 Long term (current) use of aspirin; Z95.5 Presence of coronary angioplasty implant and graft
CPT/HCPCS: 93005 ×2; 99291; 96361; 96375; 96365; 36415 ×2; 80162; 83690; 83735 ×2; 84100 ×2; 85025; 85610; 80048; 80053; 84484 ×2; 71046; 93010 ×2; J0610; J1160; J3490 ×2; J3475; J7030; J7050; J7040; G0378

== ENCOUNTER 2020-02-15 10:23 | Inpatient (IN) | payer OTHER, MEDICARE ==
[2020-02-15 11:03] LABS: ABSOLUTE BASOPHILS # (AUTO) 0.1 10^3/uL (0.0-0.2); ABSOLUTE EOSINOPHILS # (AUTO) 0.1 10^3/uL (0.0-0.6); ABSOLUTE LYMPHOCYTES (AUTO) 1.6 10^3/uL (0.5-4.7); ABSOLUTE MONOCYTES (AUTO) 0.6 10^3/uL (0.1-1.4); ABSOLUTE NEUT (AUTO) 3.9 10^3/uL (1.7-8.2); EOSINOPHILS % (AUTO) 1.8 % (0-6); HEMATOCRIT 44.1 % (37.9-51.0); HEMOGLOBIN 14.9 g/dL (13.5-17.0); LYMPHOCYTES % (AUTO) 25.8 % (13-45); MEAN CORPUSCULAR HEMOGLOBIN 29.8 pg (27.0-33.4); MEAN CORPUSCULAR HGB CONC 33.9 g/dL (32.0-36.0); MEAN CORPUSCULAR VOLUME 88 fl (80-97); MONOCYTES % (AUTO) 10.2 % (3-13); PLATELET COUNT 173 10^3/uL (150-450); RED CELL DISTRIBUTION WIDTH 14.7 % (11.5-14.0); SEGMENTED NEUTROPHILS % (AUTO) 61.2 % (42-78); TOTAL CELLS COUNTED % (AUTO) 100 %; WHITE BLOOD COUNT 6.4 10^3/uL (4.0-10.5)
[2020-02-15 11:10] LABS: ALBUMIN 3.6 g/dL (3.5-5.0); ALKALINE PHOSPHATASE 70 U/L (38-126); ANION GAP 7 (5-19); ASPARTATE AMINO TRANSFERASE 23 U/L (17-59); BILIRUBIN,DIRECT 0.3 mg/dL (0.0-0.4); BLOOD UREA NITROGEN 25 mg/dL (7-20); CALCIUM 9.1 mg/dL (8.4-10.2); CARBON DIOXIDE 21 mmol/L (22-30); CHLORIDE 113 mmol/L (98-107); CREATINE KINASE 148 U/L (55-170); GLUCOSE 99 mg/dL (75-110); POTASSIUM 4.5 mmol/L (3.6-5.0); TOTAL PROTEIN 6.1 g/dL (6.3-8.2)
[2020-02-15 11:22] LABS: CREATINE KINASE MB 1.9 ng/mL (<4.55); TROPONIN I 0.016 ng/mL
--- NOTE | 2020-02-15 11:24 | ER Document Report ---
ED General - General Chief Complaint: Palpitations Stated Complaint: CHEST PAIN Time Seen by Provider: 02/15/20 10:46 Primary Care Provider: [facility] [[facility]] - Follow up as needed TRAVEL OUTSIDE OF THE [place] IN LAST 30 DAYS: No - HPI Notes: Chief complaint: Palpitations and chest tightness HPI: This is a 74-year-old male with a history of chronic atrial fibrillation followed by Dr. Hogue from cardiology and also by the outpatient MD clinic who awakened this a.m. with rapid heartbeat, palpitations and vague chest tightness in the subxiphoid area. Patient spoke with his marketing research intern, Dr. Hogue by phone and was advised to call EMS and come to the ED. Upon EMS arrival they found patient to be in rapid atrial fibrillation with ventricular rate averaging around 150. They gave him some IV Cardizem and started on Cardiz em drip which been titrated up to 10 mg/h. His heart rate was about 90 when he arrived here and he was asymptomatic. Patient says he has been taking his prescribed medications without missing any doses and there have been no recent changes in the dosages of the medication. He denies any nausea, vomiting, diarrhea or other intercurrent illness. He denies any shortness of breath or cough. Home Medications: Loratadine [Claritin 10 mg Tablet] 10 mg PO DAILY 01/17/19 Pravastatin Sodium 80 mg PO QHS 01/17/19 Tamsulosin HCl [Flomax] 0.4 mg PO DAILY 01/17/19 Apixaban [Eliquis 5 mg Tablet] 5 mg PO BID #60 tablet 01/20/19 Aspirin [Ecotrin 81 mg EC Tablet] 81 mg PO DAILY 10/03/19 Diltiazem HCl [Cardizem Cd 120 mg Capsule] 120 mg PO Q12 30 Days cap.sr.24h 10/04/19 Review of prior records shows 2 previous hospitalizations related to atrial fibrillation with rapid ventricular response and apparently both of these were associated with electrolyte disturbances. - Related Data Allergies/Adverse Reactions: Penicillins Allergy (Mild, Verified 10/03/19 10:30) Past Medical History - General Information source: Patient, Relative - Social History Smoking Status: Never Smoker Frequency of alcohol use: None Drug Abuse: None Family History: CAD, DM, Hypertension - Past Medical History Cardiac Medical History: Reports: Hx Atrial Fibrillation, Hx Coronary Artery Disease, Hx Heart Attack - 2002 but states no stenting was performed, Hx Hypercholesterolemia, Hx Hypertension Pulmonary Medical History: Denies: Hx Asthma, Hx COPD Neurological Medical History: Denies: Hx Seizures Endocrine Medical History: Denies: Hx Diabetes Mellitus Type 1, Hx Diabetes Mellitus Type 2, Hx Hyperthyroidism, Hx Hypothyroidism Renal/ Medical History: Denies: Hx Peritoneal Dialysis GI Medical History: Denies: Hx Cirrhosis, Hx Crohn's Disease, Hx Hepatitis, Hx Ulcerative Colitis Musculoskeletal Medical History: Denies Hx Arthritis, Denies Hx Gout Skin Medical History: Denies Hx Eczema, Denies Hx Psoriasis Psychiatric Medical History: Denies: Hx Depression Infectious Medical History: Denies: Hx Hepatitis Past Surgical History: Reports: Hx Cardiac Catheterization, Hx Cholecystectomy, Hx Herniorrhaphy, Hx Tonsillectomy - Immunizations Immunizations up to date: Yes Hx Diphtheria, Pertussis, Tetanus Vaccination: Yes Review of Systems - Review of Systems Notes: Constitutional: Negative for fever. HENT: Negative for sore throat. Eyes: Negative for visual changes. Cardiovascular: As per HPI. Respiratory: Negative for shortness of breath. Gastrointestinal: Negative for abdominal pain, vomiting or diarrhea. Genitourinary: Negative for dysuria. Musculoskeletal: Negative for back pain. Skin: Negative for rash. Neurological: Negative for headaches, weakness or numbness. 10 point ROS negative except as marked above and in HPI. Physical Exam - Vital signs Vitals: Temp Resp 97.8 F 20 02/15/20 10:30 02/15/20 10:30 - Notes Notes: GENERAL: Well-developed well-nourished male approximately stated age appearing in no acute distress. SKIN: Good turgor no rashes. HEAD: Normocephalic atraumatic. EYES: PERRLA. EOMI. Conjunctivae and sclerae clear. EARS: CANALS AND TMS CLEAR. NOSE: CLEAR. MOUTH: Moist mucosa. Good dentition. No stridor or edema. No drooling. NECK: Supple. No masses or thyromegaly. No adenopathy. Carotids 2+ without bruits. No JVD. BACK: Symmetrical without tenderness. CHEST: Respirations unlabored. Breath sounds clear and symmetrical. HEART: Irregularly irregular rhythm. No murmur gallop or rub. ABDOMEN: Soft nontender without masses, organomegaly or rebound. Bowel sounds normally active. No bruits. GENITALIA: Deferred. EXTREMITIES: No edema. No calf tenderness. Cap refill less than 1.5 seconds. Dorsalis pedis and posterior tibial pulses 3+ and symmetrical. NEUROLOGICAL: GCS 15. Alert and oriented x3. Normal gait. Fluent speech. Cranial nerves II through XII intact. Sensorimotor and cerebellar normal. Normal tone. PSYCHIATRIC: Appropriate affect. Course - Re-evaluation Re-evalutation: 02/15/20 13:07 Initial troponin is normal. Patient remains free of chest discomfort here. BNP is elevated. Potassium and magnesium are normal. Chest x-ray shows cardiomeg noelle. No acute ST changes on EKG. Patient remains on 10 mg/h diltiazem drip and is still in atrial fib with a rate about 95. Case has been discussed with Dr. Hogue from cardiology and we agree that patient needs telemetry admission. Admission has been accepted by Dr. Solorio. - Vital Signs Vital signs: Temp Pulse Resp BP Pulse Ox 97.8 F 84 20 104/74 97 02/15/20 10:30 02/15/20 10:53 02/15/20 12:01 02/15/20 12:00 02/15/20 12:01 - Laboratory Result Diagrams: 02/15/20 10:33 02/15/20 10:33 Laboratory results interpreted by me: 02/15/20 02/15/20 02/15/20 10:33 10:33 10:33 RDW 14.7 H Chloride 113 H Carbon Dioxide 21 L BUN 25 H Creatinine 1.44 H Est GFR ( Amer) 58 L Est GFR (MDRD) Non-Af 48 L Total Bilirubin 2.0 H NT-Pro-B Natriuret Pep 2150 H Total Protein 6.1 L - Diagnostic Test Radiology results interpreted by me: 02/15/20 13:07 Portable chest x-ray: Cardiomegaly - EKG Interpretation by Me Additional EKG results interpreted by me: 02/15/20 11:36 Twelve-lead EKG from 1029 hrs. reviewed contemporaneously by me. Right 106 with atrial fibrillation present. Intervals normal. QRS axis -[address]/T wave changes noted. Comparison with prior tracing from 10/04/2019 shows patient has converted to atrial fibrillation from previous normal sinus rhythm. Indication for current study: Atrial fibrillation. Interpretation: Abnormal tracing showing atrial fibrillation. Critical Care Note - Critical Care Note Total time excluding time spent on procedures (mins): 35 - IV diltiazem drip for rate control paroxysmal atrial fibrillation Discharge - Discharge Clinical Impression: Paroxysmal AF with rapid ventricular res, Atrial fibrillation with rapid ventr icular response, Chest discomfort Condition: Good Disposition: ADMITTED INPATIENT Admitting Provider: [facility] (Hospitalist) Unit Admitted: Telemetry - Complex 9 cm lesion [facility]errals: [facility] [Primary Care [facility]] - Follow up as needed
[2020-02-15] MEDS ORDERED: DILTIAZEM HCL/D5W 125 MG/125 ML RTUINJ IV PRN (11:25)
--- NOTE | 2020-02-15 13:15 | PDOC CONSULTATION ---
Consultation-Blank Consultation: CARDIOLOGY CONSULTATION by Dr. Rita Hogue on 02/15/2020. Patient seen at 2 PM. 60 minutes spent as patient with more than 50% of time spent in direct patient care. CONSULT REQUESTING PHYSICIAN: Dr. Solorio , [place] hospitalist physician group REASON FOR CONSULTATION: Patient with recurrent atrial fibrillation with rapid ventricular response. The patient regularly sees me in follow-up with me in the clinic History OF PRESENT ILLNESS: Patient is a 74-year-old male with known history of coronary artery disease history of distal right coronary artery stent after an OH in the remote past, with no anginal symptoms, history of atrial fibrillation in sinus rhythm on Cardizem and Eliquis, and hypertension and chronic kidney disease. Admitted with symptoms of sudden onset of palpitations. And also discomfort and shortness of breath. The patient's claims that yesterday night he had started having subxiphoid discomfort and shortness of breath which increased with minimal activity. He also had some palpitations. He is not aware if in the past he has had episodic palpitations. He called me saying that his heart rate was in the 150s and I asked him to call the paramedics. When the EMT went there he was in atrial fibrillation with rapid ventricular response. He was given Ringer's lactate 1 L and also given Cardizem 20 mg and was started on Cardizem drip. At present the patient still has atrial fibrillation with ventricular response in the 90s to the low 100s. The patient at present denies any epigastric or subxiphoid discomfort. There is no shortness of breath. The patient denies any PND orthopnea or leg edema. There is no bleeding on Eliquis. There is no TIA CVA symptoms. ast Medical History Cardiac Medical History: Reports: Coronary Artery Disease, Myocardial Infarction - 2002, Hyperlipidema, Hypertension Pulmonary Medical History: Denies: Asthma, Chronic Obstructive Pulmonary Disease (COPD) EENT Medical History: Reports: Nose - Chronic allergic rhinitis Denies: Cataracts, Ears - Hearing aids Neurological Medical History: Denies: Hemorrhagic CVA, Ischemic CVA, Multiple Sclerosis, Seizures Endocrine Medical History: Denies: Diabetes Mellitus Type 1, Diabetes Mellitus Type 2, Hyperthyroidism, Hypothyroidism, Obesity Renal/ Medical History: Reports: Other - Benign prostatic hypertrophy Has a history of: Chronic Kidney Disease, and nephrolithiasis Malignancy Medical History: Reports: None GI Medical History: Denies: Cirrhosis, Crohn's Disease, Hepatitis, Ulcerative Colitis Musculoskeltal Medical History: Denies: Arthritis, Gout Skin Medical History: Denies: Eczema, Psoriasis Psychiatric Medical History: Reports: None Denies: Alcohol Dependency, Substance Abuse, Tobacco Dependency Traumatic Medical History: Reports: None Hematology: Denies: Anemia, Bleeding Tendencies Infectious Medical History: Reports: None Past Surgical History Past Surgical History: Reports: Cholecystectomy, Herniorrhaphy, Tonsillectomy Social History Information Source: Patient Lives with: Spouse/Significant other Smoking Status: Never Smoker Frequency of Alcohol Use: None Hx Recreational Drug Use: No Drugs: None Hx Prescription Drug Abuse: No. Loratadine [Claritin 10 mg Tablet] 10 mg PO DAILY 01/17/19 Pravastatin Sodium 40 mg PO QHS 01/17/19 Aspirin [Ecotrin 81 mg EC Tablet] 81 mg PO DAILY 10/03/19 Apixaban [Eliquis 5 mg Tablet] 5 mg PO Q12 02/15/20 - Advance Directive Resuscitation Status: Full Code Surrogate healthcare decision maker:: The patient's surrogate healthcare decision maker is his . Current Medications Generic Name Dose Route Start Last Admin Trade Name Freq PRN Reason Stop Dose Admin Acetaminophen 650 mg 02/15/20 17:07 Tylenol 325 Mg Tablet PO 03/16/20 17:06 Q4HP PRN FOR PAIN OR TEMP Al Hydrox/Mg Hydrox/Simethicone 15 ml 02/15/20 17:07 Maalox Plus Susp 30 Udcup PO 03/16/20 17:06 Q6HP PRN HEARTBURN Apixaban 5 mg 02/15/20 22:00 02/15/20 21:21 Eliquis 5 Mg Tablet PO 03/16/20 21:59 Not Given Q12 MIAN Aspirin 81 mg 02/16/20 10:00 Ecotrin 81 Mg Ec Tablet PO 03/17/20 09:59 DAILY [facility] Atorvastatin Calcium 40 mg 02/15/20 22:00 02/15/20 21:21 Lipitor 40 Mg Tablet PO 03/16/20 21:59 Not Given QHS [facility] Diltiazem HCl 120 mg 02/15/20 22:00 02/15/20 21:20 Cardizem Cd 120 Mg Capsule PO 03/16/20 21:59 Not Given Q12 [facility] Famotidine 20 mg 02/15/20 22:00 02/15/20 21:21 Pepcid 20 Mg Tablet PO 03/16/20 21:59 Not Given Q12 MIAN Diltiazem HCl 125 mg in 125 mls @ 0 mls/hr 02/15/20 11:25 02/15/20 21:22 Cardizem Rtu Inj 125 Mg-D5w 125 Ml Premix IV 02/15/20 23:59 5 mls/hr CONTINUOUS PRN 5 mls/hr THIS MED IS NOT "PRN" Titration Protocol Titrate Lactated Ringer's 1,000 mls @ 100 mls/hr 02/15/20 17:15 02/15/20 17:15 Lactated Ringers 1000 Ml Iv Soln IV 02/16/20 00:32 100 mls/hr NOW ONE Administration Loratadine 10 mg 02/16/20 10:00 Claritin 10 Mg Tablet PO 03/17/20 09:59 DAILY [facility] Promethazine HCl 12.5 mg 02/15/20 17:07 Phenergan Inj 25 Mg/1 Ml Vial IV 03/16/20 17:06 Q4HP PRN FOR NAUSEA/VOMITING Sodium Chloride 2.5 ml 02/15/20 22:00 02/15/20 21:17 Saline Flush 2.5 Ml Monoject Prefil Syrin IV 03/16/20 21:59 Not Given Q8 MIAN Sotalol HCl 40 mg 02/15/20 18:00 02/15/20 17:41 Betapace 80 Mg Tablet PO 03/16/20 17:59 40 mg DAILY MIAN Administration Discontinued Medications Generic Name Dose Route Start Last Admin Trade Name Freq PRN Reason Stop Dose Admin Lactated Ringer's 1,000 mls @ 175 mls/hr 02/15/20 14:33 02/15/20 14:57 Lactated Ringers 1000 Ml Iv Soln IV 02/15/20 20:15 175 mls/hr NOW ONE Administration Sotalol HCl 80 mg 02/15/20 18:00 Betapace 80 Mg Tablet PO 03/16/20 17:59 Q12 MIAN Family History Family History: CAD, DM, Hypertension. denies: Malignancy Medication/Allergy Allergies/Adverse Reactions: Penicillins Allergy Review of Systems Constitutional: ABSENT: chills, fever(s) Eyes: ABSENT: visual disturbances, other - Eye pain Ears: ABSENT: hearing changes, other - Ear pain Nose, Mouth, and Throat: ABSENT: mouth pain, no complaints of loss of smell sensation or sore throat. No loss of taste sensation. Cardiovascular: PRESENT: as per HPI, chest/subxiphoid pressure, dyspnea on exertion, palpitations. ABSENT: edema, orthropnea Respiratory: PRESENT: as per HPI, dyspnea. ABSENT: cough Gastrointestinal: ABSENT: abdominal pain, constipation, diarrhea, nausea, vomiting Genitourinary: ABSENT: dysuria, hematuria Integumentary: ABSENT: diaphoresis, pruritus, rash Neurological: ABSENT: confusion, convulsions, focal weakness, memory loss, syncope Psychiatric: PRESENT: as per HPI, anxiety. ABSENT: depression Endocrine: ABSENT: cold intolerance, heat intolerance Hematologic/Lymphatic: ABSENT: easy bleeding, easy bruising Allergic/Immunologic: PRESENT: seasonal rhinorrhea The patient has not traveled outside [place], and the patient has no symptoms suggestive COVID19. PHYSICAL EXAMINATION: The patient well-built and well-nourished. In no acute distress. Selected Entries 02/15/20 02/15/20 02/15/20 10:53 14:00 14:01 Temperature Temperature Source Heart Rate ( 94 Monitors) Respiratory 20 Rate Blood Pressure 112/69 Blood Pressure 83 Mean O2 Sat by Pulse 95 Oximetry Oxygen Delivery Room Air Method ( includes room air) 02/15/20 14:14 Temperature 97.9 F Temperature Oral Source Heart Rate ( Monitors) Respiratory Rate Blood Pressure Blood Pressure Mean O2 Sat by Pulse Oximetry Oxygen Delivery Method ( includes room air) HEAD: Is atraumatic normocephalic. EYES: Pupils equal round regular reactive to light accommodation. Extraocular movements are normal. There is no conjunctival pallor. There is no scleral icterus. EARS: Tympanic membranes are intact. External auditory canals are clear. NOSE: There is no deviated nasal septum. There is no inflammation of the nasal mucous membrane. MOUTH: Mucous membranes of mouth are dry tongue is dry. There is no ulcers. THROAT: There is no redness of the oropharynx. There is no exudates. SKIN: There is no skin rashes skin lesions. There is no petechia or ecchymosis. NECK: Supple. There is no JVD. Carotids are equal there is no bruit. There is no lymphadenopathy. There is no goiter. LUNGS: Clear to auscultation without any rhonchi rales or wheezing. Although on palpation there is no chest wall tenderness. HEART: S1- S2 is heard S1 is of variable intensity. There is no S3 gallop. There is no S4 gallop. There is systolic murmur left sternal border and the apex there is no rub. ABDOMEN: Soft. Nontender. There is no hepatospleno megaly. Bowel sounds are well heard. There is no tender areas masses. EXTREMITIES: Femorals well felt. Leg pulses well felt. There is no pedal edema. There is no DVT or cellulitis. There is no sinus or clubbing. There is no calf tenderness. AUTO DESIGN CHECKER: The patient is conscious awake alert oriented x3 with no focal deficits. PSYCHIATRIC: The patient does appear to be slightly anxious. But his judgment insight are intact. EKG: Shows atrial fibrillation with rapid ventricular response. Diffuse nonspecific ST-T changes. Labs- Entire Visit 02/15/20 02/15/20 02/15/20 10:33 10:33 10:33 WBC 6.4 RBC 5.00 Hgb 14.9 Hct 44.1 MCV 88 MCH 29.8 MCHC 33.9 RDW 14.7 H Plt Count 173 Lymph % (Auto) 25.8 [place] % (Auto) 10.2 Eos % (Auto) 1.8 Baso % (Auto) 1.0 Absolute Neuts (auto) 3.9 Absolute Lymphs (auto) 1.6 Absolute Monos (auto) 0.6 Absolute Eos (auto) 0.1 Absolute Basos (auto) 0.1 Seg Neutrophils % 61.2 Sodium 141.3 Potassium 4.5 Chloride 113 H Carbon Dioxide 21 L Anion Gap 7 BUN 25 H Creatinine 1.44 H Est GFR ( Amer) 58 L Est GFR (MDRD) Non-Af 48 L Glucose 99 Calcium 9.1 Magnesium Total Bilirubin 2.0 H Direct Bilirubin 0.3 Neonat Total Bilirubin Not Reportable Neonat Direct Bilirubin Not Reportable Neonat Indirect Bili Not Reportable AST 23 ALT 16 Alkaline Phosphatase 70 Creatine Kinase 148 CK-MB (CK-2) 1.90 Troponin I 0.016 NT-Pro-B Natriuret Pep Total Protein 6.1 L Albumin 3.6 TSH 02/15/20 02/15/20 02/15/20 10:33 10:33 10:33 WBC RBC Hgb Hct MCV MCH MCHC RDW Plt Count Lymph % (Auto) [place] % (Auto) Eos % (Auto) Baso % (Auto) Absolute Neuts (auto) Absolute Lymphs (auto) Absolute Monos (auto) Absolute Eos (auto) Absolute Basos (auto) Seg Neutrophils % Sodium Potassium Chloride Carbon Dioxide Anion Gap BUN Creatinine Est GFR ( Amer) Est GFR (MDRD) Non-Af Glucose Calcium Magnesium 2.2 Total Bilirubin Direct Bilirubin Neonat Total Bilirubin Neonat Direct Bilirubin Neonat Indirect Bili AST ALT Alkaline Phosphatase Creatine Kinase CK-MB (CK-2) Troponin I NT-Pro-B Natriuret Pep 2150 H Total Protein Albumin TSH 1.22 02/15/20 14:19 WBC RBC Hgb Hct MCV MCH MCHC RDW Plt Count Lymph % (Auto) [place] % (Auto) Eos % (Auto) Baso % (Auto) Absolute Neuts (auto) Absolute Lymphs (auto) Absolute Monos (auto) Absolute Eos (auto) Absolute Basos (auto) Seg Neutrophils % Sodium Potassium Chloride Carbon Dioxide Anion Gap BUN Creatinine Est GFR ( Amer) Est GFR (MDRD) Non-Af Glucose Calcium Magnesium Total Bilirubin Direct Bilirubin Neonat Total Bilirubin Neonat Direct Bilirubin Neonat Indirect Bili AST ALT Alkaline Phosphatase Creatine Kinase CK-MB (CK-2) Troponin I 0.019 NT-Pro-B Natriuret Pep Total Protein Albumin TSH Chest X-Ray 02/15/20 11:38 IMPRESSION: NO ACUTE RADIOGRAPHIC FINDING IN THE CHEST. IMPRESSION/RECOMMENDATION: 1. Atrial fibrillation with rapid ventricular response due to recurrence. Continue Eliquis. We will start the patient on sotalol 40 mg p.o. every 24 hours. Will wean the patient off of the IV Cardizem drip. We will check daily EKGs for QTc interval measurement for active sotalol toxicity and also watch for proarrhythmia from sotalol. 2. CHRONIC kidney disease stage III: Avoid nephrotoxic drugs. We will dose the patient's sotalol on a q. 24 interval. 3. Hypertension: Blood pressure is on the lower normal side. Hopefully the blood pressure will improve after hydration. 4. Coronary artery disease. History of old myocardial infarction, and history of stent. The patient has no anginal symptoms. The first set of troponin is negative. The patient had a IV Lexiscan Cardiolite stress testing done in the office on 02/19/2019 and this showed no reversible ischemia there was a small area of myocardial infarction involving the basal inferior wall. 5. Hyperlipidemia: Continue statins. We will check the patient's lipid levels in the a.m. Medical decision making is of high complexity. Medications reviewed medications added/adjusted. Medical decision making and management plan were discussed with the attending provider on the case. 60 minutes spent on this patient more than 50% of time spent in direct patient care. Will follow.
[2020-02-15] MEDS ORDERED: RINGERS SOLUTION,LACTATED 1,000 ML IV ONE ×2 (14:33→17:15)
--- NOTE | 2020-02-15 15:25 | EKG REPORT ---
SEVERITY:- ABNORMAL ECG - ATRIAL FIBRILLATION NONSPECIFIC T ABNORMALITIES, LATERAL LEADS : Confirmed by: Romero Zaragoza MD 15-Feb-2020 15:24:37
[2020-02-15] MEDS ORDERED: ACETAMINOPHEN 325 MG TABLET PO PRN (17:07)
[2020-02-15] MEDS ORDERED: MAG HYDROX/AL HYDROX/SIMETH SUSP 30 ML UDCUP PO PRN (17:07)
[2020-02-15] MEDS ORDERED: PROMETHAZINE HCL INJ 25 MG/1 ML VIAL IV PRN (17:07)
--- NOTE | 2020-02-15 17:29 | PDOC H&P ---
History of Present Illness Admission Date/PCP: 02/15/20 13:39 [facility] Patient complains of: Rapid heartbeat History of Present Illness: ELZA KENT is a 74 year old male with history of chronic atrial fibrillation on Eliquis, hypertension, CKD, history of [place], who presents to the hospital after waking this a.m. with rapid heartbeat, palpitations and vague chest discomfort in the epigastric region. Patient states it is a discomfort, not pain. Patient denies any relationship of his symptoms to exertion, orthopnea, PND, or lower extremity edema. He states that he is compliant with all medications, denies missing any doses. Patient was advised to present to the ED after contacting his quick service technician Dr. Hogue. Upon arrival to the ED he was found to be in atrial fibrillation with ventricular rate in the 150s. Patient was started on Cardizem IV with rate dropping into the mid-90s. ER provider discussed case with patient's quick service technician Dr. Hogue, patient was subsequently referred for admission. Past Medical History Cardiac Medical History: Reports: Atrial Fibrillation, Coronary Artery Disease, Myocardial Infarction - 2001 but states no stenting was performed, Hyperlipidema, Hypertension Pulmonary Medical History: Denies: Asthma, Chronic Obstructive Pulmonary Disease (COPD) Neurological Medical History: Denies: Seizures Endocrine Medical History: Denies: Diabetes Mellitus Type 1, Diabetes Mellitus Type 2, Hyperthyroidism, Hypothyroidism Renal/ Medical History: Reports: Chronic Kidney Disease GI Medical History: Denies: Cirrhosis, Crohn's Disease, Hepatitis, Ulcerative Colitis Musculoskeltal Medical History: Denies: Arthritis, Gout Skin Medical History: Denies: Eczema, Psoriasis Psychiatric Medical History: Denies: Depression Hematology: Denies: Anemia, Bleeding Tendencies Past Surgical History Past Surgical History: Reports: Cardiac Catheterization, Cholecystectomy, Herniorrhaphy, Tonsillectomy Social History Information Source: Patient Lives with: Family Smoking Status: Never Smoker Electronic Cigarette use?: No Frequency of Alcohol Use: None Hx Recreational Drug Use: No Drugs: None Hx Prescription Drug Abuse: No - Advance Directive Resuscitation Status: Full Code Family History Family History: CAD, DM, Hypertension Parental Family History Reviewed: Yes Children Family History Reviewed: Yes Sibling(s) Family History Reviewed.: Yes Medication/Allergy Home Medications: Loratadine [Claritin 10 mg Tablet] 10 mg PO DAILY 01/17/19 Pravastatin Sodium 40 mg PO QHS 01/17/19 Aspirin [Ecotrin 81 mg EC Tablet] 81 mg PO DAILY 10/03/19 Diltiazem HCl [Cardizem Cd 120 mg Capsule] 120 mg PO Q12 30 Days cap.sr.24h 10/04/19 Apixaban [Eliquis 5 mg Tablet] 5 mg PO Q12 02/15/20 Allergies/Adverse Reactions: Penicillins Allergy (Mild, Verified 10/03/19 10:30) Review of Systems Constitutional: ABSENT: fever(s), weight gain Eyes: ABSENT: visual disturbances Ears: ABSENT: hearing changes Nose, Mouth, and Throat: ABSENT: headache(s) Cardiovascular: PRESENT: chest pain - vague chest tightness in the subxiphoid area, palpitations. ABSENT: dyspnea on exertion, edema, orthropnea Respiratory: ABSENT: cough, dyspnea Gastrointestinal: ABSENT: abdominal pain, diarrhea, nausea, vomiting Genitourinary: ABSENT: difficulty urinating, dysuria Musculoskeletal: ABSENT: back pain, muscle weakness Integumentary: ABSENT: diaphoresis Neurological: ABSENT: confusion, dizziness, focal weakness, tingling, weakness Endocrine: ABSENT: cold intolerance, heat intolerance Hematologic/Lymphatic: ABSENT: easy bleeding, easy bruising Physical Exam Vital Signs: Temp Pulse Resp BP Pulse Ox 97.3 F 111 H 20 99/69 L 97 02/15/20 15:55 02/15/20 15:55 02/15/20 15:55 02/15/20 15:55 02/15/20 15:55 Intake & Output 02/14/20 02/15/20 02/16/20 06:59 06:59 06:59 Intake Total 1 Balance 1 Weight 82.8 kg General appearance: PRESENT: no acute distress, well-developed, well-nourished, other - Pleasant male Eye exam: PRESENT: EOMI, PERRLA. ABSENT: scleral icterus Ear exam: PRESENT: normal external ear exam. ABSENT: bleeding, drainage Mouth exam: PRESENT: moist, tongue midline Neck exam: ABSENT: JVD, lymphadenopathy, tenderness Respiratory exam: PRESENT: clear to auscultation ayana, symmetrical, unlabored. ABSENT: rales, rhonchi, tachypnea, wheezes Cardiovascular exam: PRESENT: irregular rhythm. ABSENT: gallop, rubs GI/Abdominal exam: PRESENT: normal bowel sounds, soft. ABSENT: distended, tenderness Rectal exam: PRESENT: deferred Extremities exam: ABSENT: pedal edema, tenderness Musculoskeletal exam: PRESENT: ambulatory, full ROM. ABSENT: deformity Neurological exam: PRESENT: alert, awake, oriented to person, oriented to place, oriented to time, oriented to situation, CN II-XII grossly intact Psychiatric exam: PRESENT: appropriate affect Skin exam: PRESENT: dry, warm. ABSENT: erythema Results Laboratory Results: 02/15/20 10:33 02/15/20 10:33 02/15/20 02/15/20 02/15/20 10:33 10:33 10:33 WBC 6.4 RBC 5.00 Hgb 14.9 Hct 44.1 MCV 88 MCH 29.8 MCHC 33.9 RDW 14.7 H Plt Count 173 Seg Neutrophils % 61.2 Sodium 141.3 Potassium 4.5 Chloride 113 H Carbon Dioxide 21 L Anion Gap 7 BUN 25 H Creatinine 1.44 H Est GFR ( Amer) 58 L Glucose 99 Calcium 9.1 Magnesium Total Bilirubin 2.0 H AST 23 Alkaline Phosphatase 70 Total Protein 6.1 L Albumin 3.6 TSH 1.22 02/15/20 10:33 WBC RBC Hgb Hct MCV MCH MCHC RDW Plt Count Seg Neutrophils % Sodium Potassium Chloride Carbon Dioxide Anion Gap BUN Creatinine Est GFR ( Amer) Glucose Calcium Magnesium 2.2 Total Bilirubin AST Alkaline Phosphatase Total Protein Albumin TSH 02/15/20 02/15/20 02/15/20 10:33 10:33 10:33 Creatine Kinase 148 CK-MB (CK-2) 1.90 Troponin I 0.016 NT-Pro-B Natriuret Pep 2150 H 02/15/20 14:19 Creatine Kinase CK-MB (CK-2) Troponin I 0.019 NT-Pro-B Natriuret Pep Assessment and Plan - Diagnosis (1) Atrial fibrillation with rapid ventricular response Is this a current diagnosis for this admission?: Yes Plan: Currently heart rate is persisting in A. Fib in the 80s but the rate is variable and will jump into the 120s. Discomfort associated with rapid heartbeat has subsided. Patient's quick service technician Dr. Soto has been consulted and plans to see the patient on the floor. Resume current dose Cardizem 120mg. Start Sotalol 40mg q24 hours - will monitor EKGs and mag daily. Wean Cardizem drip. Continue Eliqus. First and second troponin negative. (2) CKD (chronic kidney disease), stage III Is this a current diagnosis for this admission?: Yes Plan: Reviewed patient's labs prior to this admission, baseline creatinine appears to be around 1.4. He is at baseline currently. Avoid nephrotoxic medications. Will repeat BNP tomorrow to monitor kidney function. Make dose adjustments are necessary. (3) Essential hypertension Is this a current diagnosis for this admission?: Yes Plan: Stable at this time. Will continue to monitor. - Time Time Spent with patient: 25-34 minutes Medications reviewed and adjusted accordingly: Yes Anticipated Discharge Disposition: Home, Self Care Anticipated Discharge Timeframe: Pending cardiology consult - Inpatient Certification Based on my medical assessment, after consideration of the patient's comorbidities, presenting symptoms, or acuity I expect that the services needed warrant INPATIENT care.: Yes I certify that my determination is in accordance with my understanding of Medicare's requirements for reasonable and necessary INPATIENT services [42 CFR 412.3e].: Yes Medical Necessity: Need Close Monitoring Due to Risk of Patient Decompensation, Need For IV Fluids, Need For Continuous Telemetry Monitoring, Risk of Complication if Not Cared For in Hospital Post Hospital Care: D/C or Transfer Summary
[2020-02-15] MEDS: SOTALOL HCL 80 MG TABLET PO SCH (17:41)
[2020-02-15] MEDS ORDERED: SOTALOL HCL 80 MG TABLET PO SCH (18:00)
--- NOTE | 2020-02-15 18:19 | RADIOLOGY REPORT (SQ) ---
EXAM DESCRIPTION: CHEST SINGLE VIEW IMAGES COMPLETED DATE/TIME: 02/15/2020 11:47 am REASON FOR STUDY: Atrial fibrillation COMPARISON: 10/03/2019. EXAM PARAMETERS: NUMBER OF VIEWS: One view. TECHNIQUE: Single frontal radiographic view of the chest acquired. RADIATION DOSE: NA LIMITATIONS: None. FINDINGS: LUNGS AND PLEURA: No opacities, masses or pneumothorax. No pleural effusion. MEDIASTINUM AND HILAR STRUCTURES: No masses. Ectatic aorta. HEART AND VASCULAR STRUCTURES: Heart normal in size. Normal vasculature. BONES: No acute findings. HARDWARE: None in the chest. OTHER: No other significant finding. IMPRESSION: NO ACUTE RADIOGRAPHIC FINDING IN THE CHEST. TECHNICAL DOCUMENTATION: JOB ID: [id number] [employer]- All Rights Reserved Reading location - IP/workstation name: [email or web address]
[2020-02-15] MEDS: APIXABAN 5 MG TABLET PO SCH (21:21)
[2020-02-15] MEDS: FAMOTIDINE 20 MG TABLET PO SCH (21:21)
[2020-02-15] MEDS: ATORVASTATIN CALCIUM 40 MG TABLET PO SCH (21:21)
[2020-02-15] MEDS ORDERED: DILTIAZEM HCL 120 MG CAP.SR.24H PO SCH (22:00)
[2020-02-16 05:40] LABS: ANION GAP 7 (5-19); BLOOD UREA NITROGEN 24 mg/dL (7-20); CALCIUM 8.8 mg/dL (8.4-10.2); CARBON DIOXIDE 22 mmol/L (22-30); CHLORIDE 109 mmol/L (98-107); GLUCOSE 92 mg/dL (75-110); POTASSIUM 4.3 mmol/L (3.6-5.0)
--- NOTE | 2020-02-16 08:24 | EKG REPORT ---
SEVERITY:- NORMAL ECG - SINUS RHYTHM QTc IS 418MS, NORMAL , PT ON SOTALOL. NONSPECIFIC LATERAL ST-T CHANGES : Confirmed by: Romero Zaragoza MD 16-Feb-2020 08:23:48
[2020-02-16] MEDS: FAMOTIDINE 20 MG TABLET PO SCH ×2 (10:22→21:11)
[2020-02-16] MEDS: LORATADINE 10 MG TABLET PO SCH (10:22)
[2020-02-16] MEDS: ASPIRIN 81 MG TABLET, ENT COATED PO SCH (10:22)
[2020-02-16] MEDS: DILTIAZEM HCL 120 MG CAP.SR.24H PO SCH (10:22)
[2020-02-16] MEDS: APIXABAN 5 MG TABLET PO SCH ×2 (10:22→21:12)
[2020-02-16] MEDS: SOTALOL HCL 80 MG TABLET PO SCH (10:23)
--- NOTE | 2020-02-16 12:06 | Progress Note ---
Provider Note Provider Note: CARDIOLOGY PROGRESS NOTE by Dr. Rita Hogue on 02/16/2020. SUBJECTIVE: The patient converted to sinus rhythm. There is no TIA CVA symptoms. There is no bleeding on Eliquis. There is no TIA or CVA there is no proarrhythmia on sotalol. The patient's renal function is improved. He denies any chest pain or discomfort. There is no shortness of breath. There is no PND orthopnea. The patient's EKG shows a QT C of 418 which is acceptable. The patient's IV Cardizem drip has been discontinued. We will start the patient on Cardizem CD 120 mg p.o. daily along with sotalol 40 mg p.o. daily. Continue Eliquis. He did ambulate in the hallway and his heart rate did go up to 90 bpm but there was no recurrence of atrial fibrillation. Physical EXAMINATION: The patient is well-built and well-nourished in no acute distress. Selected Entries 02/16/20 02/16/20 16:03 17:00 Temperature 97.5 F Temperature Oral Source Heart Rate ( 61 Monitors) Respiratory 16 Rate Blood Pressure 127/87 H Blood Pressure 100 Mean BP Location Left Arm BP Position Sitting O2 Sat by Pulse 99 Oximetry Oxygen Delivery Room Air Method HEAD: Is atraumatic normocephalic. EYES: Pupils equal round regular reactive to light accommodation. Extraocular movements are normal. There is no conjunctival pallor. There is no scleral icterus. EARS: Tympanic membranes are intact. External auditory canals are clear. NOSE: There is no deviated nasal septum. There is no inflammation of the nasal mucous membrane. MOUTH: Mucous membranes of mouth are dry tongue is dry. There is no ulcers. THROAT: There is no redness of the oropharynx. There is no exudates. SKIN: There is no skin rashes skin lesions. There is no petechia or ecchymosis. NECK: Supple. There is no JVD. Carotids are equal there is no bruit. There is no lymphadenopathy. There is no goiter. LUNGS: Clear to auscultation without any rhonchi rales or wheezing. Although on palpation there is no chest wall tenderness. HEART: S1- S2 is heard S1 is of normal intensity. There is no S3 gallop. There is no S4 gallop. There is systolic murmur left sternal border and the apex there is no rub. ABDOMEN: Soft. Nontender. There is no hepatospleno megaly. Bowel sounds are well heard. There is no tender areas masses. EXTREMITIES: Femorals well felt. Leg pulses well felt. There is no pedal edema. There is no DVT or cellulitis. There is no sinus or clubbing. There is no calf tenderness. 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 PSYCHIATRIC: The patient does appear to be slightly anxious. But his judgment insight are intact. EKG: SINUS RHYTHM - STMT - * QTc IS 418MS, NORMAL , PT ON SOTALOL. - STMT - * NONSPECIFIC LATERAL ST-T CHANGES Labs- All tests 24 hr 02/16/20 05:15 Sodium 137.6 Potassium 4.3 Chloride 109 H Carbon Dioxide 22 Anion Gap 7 BUN 24 H Creatinine 1.30 H Est GFR ( Amer) > 60 Est GFR (MDRD) Non-Af 54 L Glucose 92 Calcium 8.8 Magnesium 2.0 Chest X-Ray 02/15/20 11:38 IMPRESSION: NO ACUTE RADIOGRAPHIC FINDING IN THE CHEST. IMPRESSION/RECOMMENDATION: 1. Paroxysmal atrial fibrillation. Patient now in sinus rhythm. Continue Eliquis. Will continue the patient on sotalol 40 mg p.o. every 24 hours. The patient is off the IV Cardizem drip. We will start the patient on Cardizem CD 120 mg p.o. daily.. Will continue checking daily EKGs for QTc interval measurement for active sotalol toxicity and also watch for proarrhythmia from sotalol. 2. CHRONIC kidney disease stage III: Avoid nephrotoxic drugs. We will dose the patient's sotalol on a q. 24 interval. GFR improved to 54 mL/min. 3. Hypertension: Blood pressure is on the lower normal side. Hopefully the blood pressure will improve after hydration. 4. Coronary artery disease. History of old myocardial infarction, and history of stent. The patient has no anginal symptoms. The first set of troponin is negative. The patient had a IV Lexiscan Cardiolite stress testing done in the office on 02/19/2019 and this showed no reversible ischemia there was a small area of myocardial infarction involving the basal inferior wall. 5. Hyperlipidemia: Continue statins. We will check the patient's lipid levels in the a.m. Medical decision making is of high complexity. Medications reviewed and medications added/adjusted. Medical decision making and management plan were discussed with the attending provider on the case. 40 minutes spent on this patient more than 50% of time spent in direct patient care. Will follow.
--- NOTE | 2020-02-16 13:25 | PDOC PROGRESS REPORT ---
Subjective Progress Note for:: 02/16/20 Subjective:: Patient is resting very comfortably in bed. His heart rate is well controlled. He has no discomfort or sensation of fluttering in his chest. Reason For Visit: ATRIAL FIBRILLATION WTIH RAPID VENTRIACULA RESPONS Physical Exam Vital Signs: Temp Pulse Resp BP Pulse Ox 98.5 F 62 16 135/87 H 96 02/16/20 08:04 02/16/20 08:04 02/16/20 08:04 02/16/20 08:04 02/16/20 08:04 Intake & Output 02/15/20 02/16/20 02/17/20 06:59 06:59 06:59 Intake Total 1432 Output Total 400 Balance 1032 Weight 87.9 kg General appearance: PRESENT: no acute distress, cooperative, well-developed, well-nourished Head exam: PRESENT: atraumatic, normocephalic Ear exam: PRESENT: normal external ear exam. ABSENT: bleeding, drainage Mouth exam: PRESENT: moist, tongue midline Neck exam: PRESENT: full ROM. ABSENT: carotid bruit, JVD, lymphadenopathy Respiratory exam: PRESENT: clear to auscultation ayana, symmetrical, unlabored. ABSENT: rales, rhonchi, tachypnea, wheezes Cardiovascular exam: PRESENT: irregular rhythm, +S1, +S2. ABSENT: bradycardia, diastolic murmur, systolic murmur, tachycardia GI/Abdominal exam: PRESENT: normal bowel sounds, soft. ABSENT: distended, guarding, tenderness Rectal exam: PRESENT: deferred Gentrourinary exam: ABSENT: indwelling catheter Extremities exam: ABSENT: pedal edema Musculoskeletal exam: PRESENT: ambulatory, normal inspection. ABSENT: deformity, dislocation Neurological exam: PRESENT: alert, awake, oriented to person, oriented to place, oriented to time, oriented to situation, CN II-XII grossly intact. ABSENT: altered Psychiatric exam: PRESENT: appropriate affect, normal mood. ABSENT: agitated, anxious Focused psych exam: ABSENT: delusional, paranoid, restlessness Skin exam: PRESENT: dry, normal color, warm. ABSENT: rash Results Laboratory Results: 02/15/20 10:33 02/16/20 05:15 02/16/20 05:15 Sodium 137.6 Potassium 4.3 Chloride 109 H Carbon Dioxide 22 Anion Gap 7 BUN 24 H Creatinine 1.30 H Est GFR ( Amer) > 60 Glucose 92 Calcium 8.8 Magnesium 2.0 02/15/20 02/15/20 02/15/20 10:33 10:33 10:33 Creatine Kinase 148 CK-MB (CK-2) 1.90 Troponin I 0.016 NT-Pro-B Natriuret Pep 2150 H 02/15/20 14:19 Creatine Kinase CK-MB (CK-2) Troponin I 0.019 NT-Pro-B Natriuret Pep Impressions: Chest X-Ray 02/15/20 11:38 IMPRESSION: NO ACUTE RADIOGRAPHIC FINDING IN THE CHEST. Assessment and Plan - Diagnosis (1) Atrial fibrillation with rapid ventricular response Is this a current diagnosis for this admission?: Yes Plan: The patient was on Cardizem 120 mg twice daily and developed rapid A. fib/flutte r. He was admitted and started sotalol therapy. His heart rate is well controlled. When his heart rate was 106 his QT was 344 with a QTC of 457. His heart rate is now 54 with a QT of 440 and a QTC of 417. We will continue to monitor the QT interval while initiating sotalol therapy. He will continue on telemetry and I have ordered an EKG every day. (2) CKD (chronic kidney disease), stage III Is this a current diagnosis for this admission?: Yes Plan: Currently at baseline. Continue to monitor renal function. (3) Essential hypertension Is this a current diagnosis for this admission?: Yes Plan: Blood pressure well controlled. Patient is on diltiazem and sotalol. (4) HLD (hyperlipidemia) Qualifiers: Hyperlipidemia type: unspecified Qualified Code(s): E78.5 - Hyperlipidemia, unspecified Is this a current diagnosis for this admission?: Yes Plan: Continue atorvastatin and cardiac diet - Time Time Spent with patient: Less than 15 minutes Medications reviewed and adjusted accordingly: Yes Anticipated Discharge Disposition: Home, Self Care Anticipated Discharge Timeframe: within 72 hours
[2020-02-16] MEDS: ATORVASTATIN CALCIUM 40 MG TABLET PO SCH (21:11)
--- NOTE | 2020-02-17 08:38 | EKG REPORT ---
SEVERITY:- BORDERLINE ECG - SINUS BRADYCARDIA PROBABLE LATERAL INFARCT, OLD : Confirmed by: Romero Zaragoza MD 17-Feb-2020 08:38:24
[2020-02-17] MEDS: ASPIRIN 81 MG TABLET, ENT COATED PO SCH (09:51)
[2020-02-17] MEDS: APIXABAN 5 MG TABLET PO SCH (09:51)
[2020-02-17] MEDS: FAMOTIDINE 20 MG TABLET PO SCH (09:51)
[2020-02-17] MEDS: LORATADINE 10 MG TABLET PO SCH (09:52)
[2020-02-17] MEDS: SOTALOL HCL 80 MG TABLET PO SCH (09:52)
[2020-02-17] MEDS: DILTIAZEM HCL 120 MG CAP.SR.24H PO SCH (09:52)
--- NOTE | 2020-02-17 12:16 | Progress Note ---
Provider Note Provider Note: CARDIOLOGY PROGRESS NOTE by Dr. Viera has been on 02/17/2020. SUBJECTIVE: The patient remains in sinus rhythm. There is no chest pain or discomfort. There is no shortness of breath there is no palpitations. There is no PND orthopnea leg edema. There is no proarrhythmia on sotalol. The patient's QTC is acceptable. PHYSICAL EXAMINATION: The patient is well-built and well-nourished in no acute distress Selected Entries 02/17/20 02/17/20 07:35 08:00 Temperature 97.4 F Temperature Oral Source Heart Rate ( 66 Monitors) Respiratory 20 Rate Blood Pressure 120/75 Blood Pressure 90 Mean BP Location Right Arm BP Position Supine O2 Sat by Pulse 95 Oximetry Oxygen Delivery Room Air Method HEAD: Is atraumatic normocephalic. EYES: Pupils equal round regular reactive to light accommodation. Extraocular movements are normal. There is no con junctival pallor. There is no scleral icterus. EARS: Tympanic membranes are intact. External auditory canals are clear. NOSE: There is no deviated nasal septum. There is no inflammation of the nasal mucous membrane. MOUTH: Mucous membranes of mouth are dry tongue is dry. There is no ulcers. THROAT: There is no redness of the oropharynx. There is no exudates. SKIN: There is no skin rashes skin lesions. There is no petechia or ecchymosis. NECK: Supple. There is no JVD. Carotids are equal there is no bruit. There is no lymphadenopathy. There is no goiter. LUNGS: Clear to auscultation without any rhonchi rales or wheezing. Although on palpation there is no chest wall tenderness. HEART: S1- S2 is heard S1 is of normal intensity. There is no S3 gallop. There is no S4 gallop. There is systolic murmur left sternal border and the apex there is no rub. ABDOMEN: Soft. Nontender. There is no hepatospleno megaly. Bowel sounds are well heard. There is no tender areas masses. EXTREMITIES: Femorals well felt. Leg pulses well felt. There is no pedal edema. There is no DVT or cellulitis. There is no sinus or clubbing. There is no calf tenderness. 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 PSYCHIATRIC: The patient does appear to be slightly anxious. But his judgment insight are intact. EKG: - STMT - * SINUS BRADYCARDIA [[id number]] . PROBABLE LATERAL INFARCT, OLD HR 56 NC 204 QRSD 92 QT 472 QTc 456 Chest X-Ray 02/15/20 11:38 IMPRESSION: NO ACUTE RADIOGRAPHIC FINDING IN THE CHEST. IMPRESSION/RECOMMENDATION: 1. Paroxysmal atrial fibrillation. Patient now in sinus rhythm. Continue Eliquis. Will continue the patient on sotalol 40 mg p.o. every 24 hours, and Cardizem CD 120 mg p.o. daily with other current medications. 2. CHRONIC kidney disease stage III: Avoid nephrotoxic drugs. We will dose the patient's sotalol on a q. 24 interval. GFR improved to 54 mL/min. 3. Hypertension: Blood pressure is on the lower normal side. Hopefully the blood pressure will improve after hydration. 4. Coronary artery disease. History of old myocardial infarction, and history of stent. The patient has no anginal symptoms. The first set of troponin is negative. The patient had a IV Lexiscan Cardiolite stress testing done in the office on 02/19/2019 and this showed no reversible ischemia there was a small area of myocardial infarction involving the basal inferior wall. 5. Hyperlipidemia: Continue statins. Medical decision making is of high complexity. Medications reviewed and medications added/adjusted. Medical regimen and management plan discussed with attending provider. Patient cardiac status stable. From cardiac point of view patient can be discharged home. Would recommend continue the patient on Eliquis 5 mg p.o. twice daily. Continue the patient on sotalol 40 mg milligrams p.o. daily and Cardizem CD 120 mg p.o. daily continue his other medications. The patient knows to follow-up with me in the office. We will get a repeat IV Lexiscan Cardiolite stress test and echocardiogram as an outpatient. Medical decision making is a moderate complexity. 40 minutes spent on this patient with more than 50% of time spent on direct patient care. Discussed the patient to watch for any palpitations dizziness shortness of breath chest pain near syncope or syncopal symptoms and to call me immediately on my cell phone.
--- NOTE | 2020-02-17 14:06 | PDOC DISCHARGE SUMMARY ---
Impression - Admit/DC Date/PCP Admission Date/Primary Care Provider: 02/15/20 13:39 [facility] Discharge Date: 02/17/20 - Discharge Diagnosis (1) Atrial fibrillation with rapid ventricular response Is this a current diagnosis for this admission?: Yes (2) CKD (chronic kidney disease), stage III Is this a current diagnosis for this admission?: Yes (3) Essential hypertension Is this a current diagnosis for this admission?: Yes (4) HLD (hyperlipidemia) Is this a current diagnosis for this admission?: Yes - Additional Information Resuscitation Status: Full Code Discharge Diet: Cardiac Discharge Activity: Activity As Tolerated Referrals: [facility] [Primary [facility]] - Follow up as needed Prescriptions: Sotalol HCl [Betapace 80 mg Tablet] 40 mg PO DAILY #15 tablet Home Medications: Loratadine [Claritin 10 mg Tablet] 10 mg PO DAILY 01/17/19 Pravastatin Sodium 40 mg PO QHS 01/17/19 Aspirin [Ecotrin 81 mg EC Tablet] 81 mg PO DAILY 10/03/19 Apixaban [Eliquis 5 mg Tablet] 5 mg PO Q12 02/15/20 Diltiazem HCl [Cardizem Cd 120 mg Capsule] 120 mg PO DAILY #0 cap.sr.24h 02/17/20 Diltiazem HCl [Cardizem Cd 120 mg Capsule] 120 mg PO DAILY 30 Days cap.sr.24h 02/17/20 Sotalol HCl [Betapace 80 mg Tablet] 40 mg PO DAILY #15 tablet 02/17/20 History of Present Illiness History of Present Illness: ELZA KENT is a 74 year old male with history of chronic atrial fibrillation on Eliquis, hypertension, CKD, history of VT, who presents to the hospital after waking this a.m. with rapid heartbeat, palpitations and vague chest discomfort in the epigastric region. Patient states it is a discomfort, not pain. Patient denies any relationship of his symptoms to exertion, orthopnea, PND, or lower extremity edema. He states that he is compliant with all medications, denies missing any doses. Patient was advised to present to the ED after contacting his hazard mitigation officer Dr. Hogue. Upon arrival to the ED he was found to be in atrial fibrillation with ventricular rate in the 150s. Patient was started on Cardizem IV with rate dropping into the mid-90s. ER provider discussed case with patient's hazard mitigation officer Dr. Hogue, patient was subsequently referred for admission. Hospital Course Hospital Course: Patient required hospitalization to initiate Sotalol. This was dosed based on his renal function. He was started on 40mg daily and tolerated this dose. Cardiazem was decreased to 120mg daily and he remained stable Physical Exam Vital Signs: Temp Pulse Resp BP Pulse Ox 97.3 F 58 L 20 135/93 H 97 02/17/20 12:17 02/17/20 12:17 02/17/20 12:17 02/17/20 12:17 02/17/20 12:17 Intake & Output 02/16/20 02/17/20 02/18/20 06:59 06:59 06:59 Intake Total 1432 1210 480 Output Total 400 Balance 1032 1210 480 Weight 87.9 kg 86 kg General appearance: PRESENT: no acute distress Respiratory exam: PRESENT: clear to auscultation ayana, symmetrical, unlabored. ABSENT: rales, rhonchi, tachypnea, wheezes Cardiovascular exam: PRESENT: irregular rhythm. ABSENT: bradycardia, diastolic murmur, systolic murmur, tachycardia Results Laboratory Results: WBC 6.4 10^3/uL (4.0-10.5) 02/15/20 10:33 RBC 5.00 10^6/uL (4.35-5.55) 02/15/20 10:33 Hgb 14.9 g/dL (13.5-17.0) 02/15/20 10:33 Hct 44.1 % (37.9-51.0) 02/15/20 10:33 MCV 88 fl (80-97) 02/15/20 10:33 MCH 29.8 pg (27.0-33.4) 02/15/20 10:33 MCHC 33.9 g/dL (32.0-36.0) 02/15/20 10:33 RDW 14.7 % (11.5-14.0) H 02/15/20 10:33 Plt Count 173 10^3/uL (150-450) 02/15/20 10:33 Lymph % (Auto) 25.8 % (13-45) 02/15/20 10:33 [place] % (Auto) 10.2 % (3-13) 02/15/20 10:33 Eos % (Auto) 1.8 % (0-6) 02/15/20 10:33 Baso % (Auto) 1.0 % (0-2) 02/15/20 10:33 Absolute Neuts (auto) 3.9 10^3/uL (1.7-8.2) 02/15/20 10:33 Absolute Lymphs (auto) 1.6 10^3/uL (0.5-4.7) 02/15/20 10:33 Absolute Monos (auto) 0.6 10^3/uL (0.1-1.4) 02/15/20 10:33 Absolute Eos (auto) 0.1 10^3/uL (0.0-0.6) 02/15/20 10:33 Absolute Basos (auto) 0.1 10^3/uL (0.0-0.2) 02/15/20 10:33 Seg Neutrophils % 61.2 % (42-78) 02/15/20 10:33 Sodium 137.6 mmol/L (137-145) 02/16/20 05:15 Potassium 4.3 mmol/L (3.6-5.0) 02/16/20 05:15 Chloride 109 mmol/L (98-107) H 02/16/20 05:15 Carbon Dioxide 22 mmol/L (22-30) 02/16/20 05:15 Anion Gap 7 (5-19) 02/16/20 05:15 BUN 24 mg/dL (7-20) H 02/16/20 05:15 Creatinine 1.30 mg/dL (0.52-1.25) H 02/16/20 05:15 Est GFR ( Amer) > 60 (>60) 02/16/20 05:15 Est GFR (MDRD) Non-Af 54 (>60) L 02/16/20 05:15 Glucose 92 mg/dL (75-110) 02/16/20 05:15 Calcium 8.8 mg/dL (8.4-10.2) 02/16/20 05:15 Magnesium 2.0 mg/dL (1.6-2.3) 02/16/20 05:15 Total Bilirubin 2.0 mg/dL (0.2-1.3) H 02/15/20 10:33 Direct Bilirubin 0.3 mg/dL (0.0-0.4) 02/15/20 10:33 Neonat Total Bilirubin Not Reportable 02/15/20 10:33 Neonat Direct Bilirubin Not Reportable 02/15/20 10:33 Neonat Indirect Bili Not Reportable 02/15/20 10:33 AST 23 U/L (17-59) 02/15/20 10:33 ALT 16 U/L (<50) 02/15/20 10:33 Alkaline Phosphatase 70 U/L (38-126) 02/15/20 10:33 Creatine Kinase 148 U/L (55-170) 02/15/20 10:33 CK-MB (CK-2) 1.90 ng/mL (<4.55) 02/15/20 10:33 Troponin I 0.019 ng/mL 02/15/20 14:19 NT-Pro-B Natriuret Pep 2150 pg/mL (<125) H 02/15/20 10:33 Total Protein 6.1 g/dL (6.3-8.2) L 02/15/20 10:33 Albumin 3.6 g/dL (3.5-5.0) 02/15/20 10:33 TSH 1.22 uIU/mL (0.47-4.68) 02/15/20 10:33 02/15/20 02/15/20 02/15/20 10:33 10:33 14:19 CK-MB (CK-2) 1.90 Troponin I 0.016 0.019 NT-Pro-B Natriuret Pep 2150 H Impressions: Chest X-Ray 02/15/20 11:38 IMPRESSION: NO ACUTE RADIOGRAPHIC FINDING IN THE CHEST. Plan Health Concerns: new medication fo A-flutter that needs to be dosed for renal function Plan of Treatment: cont sotalol and f/u with Dr Soto Goals: sustained control of a-flutter Time Spent: Greater than 30 Minutes Stroke Is this a Stroke Patient?: No Acute Heart Failure - Is this a Heart Failure Patient?: No
[2020-02-17 14:11] VITALS: BP 134/93
== END 2020-02-17 14:30 | disposition home or self-care (01) | DRG 310 ==
LOC: ER 10:23 → EH 13:39 → 3S 15:38
PROVIDERS: ADMIT Hospitalist; ATTEND Hospitalist
DX: I48.0 Paroxysmal atrial fibrillation (principal); Z79.01 Long term (current) use of anticoagulants; I25.10 Atherosclerotic heart disease of native coronary artery without angina pectoris; Z95.5 Presence of coronary angioplasty implant and graft; I25.2 Old myocardial infarction; I10 Essential (primary) hypertension; E78.5 Hyperlipidemia, unspecified; E66.9 Obesity, unspecified; Z90.49 Acquired absence of other specified parts of digestive tract; Z82.49 Family history of ischemic heart disease and other diseases of the circulatory system; I12.9 Hypertensive chronic kidney disease with stage 1 through stage 4 chronic kidney disease, or unspecified chronic kidney disease; N18.3 Chronic kidney disease, stage 3 (moderate); Z79.82 Long term (current) use of aspirin; Z79.899 Other long term (current) drug therapy; Z88.0 Allergy status to penicillin; N40.0 Benign prostatic hyperplasia without lower urinary tract symptoms
CPT/HCPCS: 36415; 71045; 80048; 80053; 82550; 82553; 83735; 83880; 84443; 84484; 85025; 93005; 93010; 99285; J3490; J7120

== ENCOUNTER → 2020-02-25 | Outpatient (CLI) | payer MEDICARE | LOC: OD 14:51 | PROVIDERS: ATTEND Specialist | DX: I25.10 Atherosclerotic heart disease of native coronary artery without angina pectoris (principal); I95.9 Hypotension, unspecified | CPT/HCPCS: 36415; 84484 ==